=== PATIENT | female | born 1955 | race Caucasian/White ===

== ENCOUNTER → 2020-09-23 16:23 | Outpatient (CLI) | payer BC, SELFPAY ==
--- NOTE | ~2020-09-23 | MM_ITS ---
EXAMINATION: MM screening [facility] BI w christiano HISTORY: Screening TECHNIQUE: Craniocaudal and mediolateral oblique 3-D tomosynthesis images were obtained and synthetic 2-D images were generated. CAD analysis was submitted and interpreted. COMPARISON: Comparison to multiple prior studies sequentially, with oldest reviewed study dated 01/14. BREAST PARENCHYMAL COMPOSITION: There are scattered areas of fibroglandular density. FINDINGS: There is no evidence of suspicious mass, calcification, or architectural distortion to sugg est malignancy in either breast. There has been no suspicious interval change. IMPRESSION: 1. No mammographic evidence of malignancy. 2. Recommend routine screening mammography in one year. BI-RADS Category 1: Negative Reviewed, dictated and finalized at location A. ATIONAL PROGRAMMING DIRECTOR
== END ==
PROVIDERS: PCP Family Medicine; Visit Provider Nurse Practitioner
DX: Z12.31 Encounter for screening mammogram for malignant neoplasm of breast (principal)
CPT/HCPCS: 77063; 77067

== ENCOUNTER 2021-02-18 12:50 | Outpatient (CLI) | payer BC, SELFPAY ==
--- NOTE | ~2021-02-18 | XR_ITS ---
XR shoulder LT min 2V DATE: 02/18/2021 13:29 INDICATION: Left shoulder pain TECHNIQUE: 4 views COMPARISON: None FINDINGS: Osteopenia. No fracture or dislocation. Normal alignment at the acromioclavicular and gleno humeral joints. No periosteal reaction or bone destruction. No abnormal soft tissue calcification. IMPRESSION: Osteopenia Reviewed, dictated and finalized at location B. IMPRESSION: Osteopenia
--- NOTE | ~2021-02-18 | XR_ITS ---
XR cervical spine 4-5V DATE: 02/18/2021 13:29 INDICATION: Neck pain TECHNIQUE: AP, lateral, swimmer's, open-mouth views COMPARISON: None FINDINGS: C1 and C2 are normally aligned and the odontoid process is intact. No fracture or dislocati on or locked facet or prevertebral soft tissue swelling is detected. There is moderate degenerative disc disease at C5-C6 mildly severe degenerative disc disease at C6-C7 , with posterior as well as anterior spurring at each of these levels. There is mild to moderate uncovertebral joint spurring at C5-6 and C6-7. IMPRESSION: Degenerative disc disease and uncovertebral joint spurring at C5-6 and C6-7 Reviewed, dictated and finalized at location B.
== END 2021-02-18 12:51 ==
PROVIDERS: PCP Family Medicine; Visit Provider Physician Assistant
DX: M85.822 Other specified disorders of bone density and structure, left upper arm (principal); M47.812 Spondylosis without myelopathy or radiculopathy, cervical region
CPT/HCPCS: 72050; 73030

== ENCOUNTER 2021-10-07 09:16 | Outpatient (CLI) | payer MEDICARE, SELFPAY ==
--- NOTE | ~2021-10-07 | XR_ITS ---
EXAMINATION: XR chest 2V DATE: 10/07/2021 09:38 INDICATION: Shortness of breath TECHNIQUE: PA and lateral views of the chest were obtained. COMPARISON: Chest radiograph dated 08/18/2018 FINDINGS: The lungs remain clear with no focal airspace opacities, pulmonary edema, pleural effusion or pneumot horax. The cardiomediastinal silhouette is normal. Visualized bones and soft tissues are unremarkable . IMPRESSION: 1. No acute cardiopulmonary disease. Reviewed, dictated and finalized at location B. APPRAISER
== END 2021-10-07 09:17 ==
PROVIDERS: PCP Family Medicine; Visit Provider Physician Assistant
DX: R06.02 Shortness of breath (principal)
CPT/HCPCS: 71046

== ENCOUNTER → 2021-10-13 02:26 | Outpatient (CLI) | payer MEDICARE, SELFPAY ==
[2021-10-13 14:58] LABS: Influenza A QL RT-PCR Negative (Negative); Influenza B QL RT-PCR Negative (Negative)
[2021-10-13 21:18] LABS: SARS-CoV-2 RNA PCR Negative
== END ==
PROVIDERS: PCP Family Medicine; Visit Provider Physician Assistant
DX: R50.9 Fever, unspecified (principal); Z20.822 Contact with and (suspected) exposure to COVID-19
CPT/HCPCS: 87502; C9803; U0003; U0005

== ENCOUNTER → 2021-11-30 12:36 | Outpatient (CLI) | payer MEDICARE, SELFPAY ==
--- NOTE | ~2021-11-30 | MM_ITS ---
EXAMINATION: MM screening [facility] BI w christiano HISTORY: Screening mammogram TECHNIQUE: Craniocaudal and mediolateral oblique 3-D tomosynthesis images were obtained and synthetic 2-D images were generated. CAD analysis was submitted and interpreted. COMPARISON: 09/23/2020, 02/20/2019, 02/01/2018 BREAST PARENCHYMAL COMPOSITION: There are scattered areas of fibroglandular density. FINDINGS: There is no evidence of suspicious mass, calcification, or architectural distortion to sugg est malignancy in either breast. There has been no suspicious interval change. IMPRESSION: 1. No mammographic evidence of malignancy. 2. Recommend routine screening mammography in one year. BI-RADS Category 1: Negative Reviewed, dictated and finalized at location A. ORDER SORTER
== END ==
PROVIDERS: Visit Provider Physician Assistant
DX: Z12.31 Encounter for screening mammogram for malignant neoplasm of breast (principal)
CPT/HCPCS: 77063; 77067

== ENCOUNTER → 2022-03-15 12:51 | Outpatient (CLI) | payer MEDICARE, SELFPAY ==
--- NOTE | ~2022-03-15 | US_ITS ---
EXAMINATION: US transvaginal DATE: 03/15/2022 13:33 INDICATION: Post menopausal bleeding TECHNIQUE: Multiple transabdominal and endovaginal sonographic images of the pelvis were obtained. COMPARISON: 01/16/2016. FINDINGS: Uterus: 6.2 x 3.1 x 3.5 cm. Endometrial complex measures 0.6 cm. Hypoechoic somewhat collection withi n the cervix measuring 1.3 x 1.1 x 1.9 cm Right Ovary: Not visualized. Left Ovary: 2.0 x 1.2 x 1.5 cm. Vascular flow is present. There is no free fluid in the pelvis. IMPRESSION: 1. Small endocervical fluid/clot collection. 2. Nonvisualization of the right ovary. Reviewed, dictated and finalized at location K.
== END ==
PROVIDERS: PCP Family Medicine; Visit Provider Nurse Practitioner
DX: N95.0 Postmenopausal bleeding (principal)
CPT/HCPCS: 76830

== ENCOUNTER 2022-05-11 10:30 | Outpatient (CLI) | payer MEDICARE, SELFPAY ==
[2022-05-11 16:50] LABS: Lithium 0.4 mmol/L (0.6-1.2)
== END 2022-05-11 10:31 | disposition home or self-care (01) ==
PROVIDERS: Anesthesiology; PCP Family Medicine; Visit Provider Obstetrics & Gynecology Gynecology
DX: F31.32 Bipolar disorder, current episode depressed, moderate (principal)
CPT/HCPCS: 36415; 80178

== ENCOUNTER 2022-05-11 10:45 | Outpatient (CLI) | payer MEDICARE, SELFPAY ==
--- NOTE | 2022-05-11 10:46 | ECG_ITS ---
Measurements Intervals [place] Rate: 61 P: 8 SD: 179 QRS: -21 QRSD: 90 T: 22 QT: 420 QTc: 426 Interpretive Statements SINUS RHYTHM POSSIBLE OLD INFERIOR MYOCARDIAL INFARCTION OLD ANTEROSEPTAL MYOCARDIAL INFARCTION NO PREVIOUS ECG AVAILABLE FOR COMPARISON Electronically Signed On 05-11-2022 18:19:31 CDT by Dulce Miguel M.D.
== END 2022-05-11 10:46 | disposition home or self-care (01) ==
LOC: ANHLAB 10:46
PROVIDERS: PCP Family Medicine; Visit Provider Family Medicine
DX: I10 Essential (primary) hypertension (principal)
CPT/HCPCS: 36415; 80178; 93005

== ENCOUNTER 2022-07-18 01:09 | Day surgery (SDC) | payer MEDICARE, SELFPAY ==
[2022-07-15 16:09] VITALS: BMI 33.0
[2022-07-18] VITALS (10 sets, daily range): BP systolic 111–150; BP diastolic 62–82; PULSE 53–64; RESP 12–22; TEMP 36.6; O2SAT 94–99; BMI 34.5
[2022-07-18 07:51] LABS: Basophils Absolute Auto 0.1 K/mm3 (0.0-0.1); Basophils Percent Auto 0.8 % (0.2-1.2); Eosinophils Absolute Auto 0.7 K/mm3 (0-0.3); Eosinophils Percent Auto 7.3 % (0-4.4); Hemoglobin 13.4 g/dL (12.0-15.0); Immature Granulocyte Absolute 0.03 K/mm3 (0.00-0.031); Immature Granulocyte Percent A 0.3 % (0-0.5); Lymphocytes Absolute Auto 2.19 K/mm3 (0.9-3.2); Lymphocytes Percent Auto 22.9 % (18.3-44.2); Mean Corpuscular HGB Conc 32.7 g/dl (32-36); Mean Corpuscular Hemoglobin 29.5 pg (26-34); Mean Corpuscular Volume 90.3 fl (80-100); Mean Platelet Volume 9.7 fl (7.4-10.4); Monocytes Absolute Auto 0.7 K/mm3 (0.1-0.6); Monocytes Percent Auto 6.8 % (2.6-8.5); Neutrophils Absolute Auto 5.9 K/mm3 (1.3-6.7); Neutrophils Percent Auto 61.9 % (45.5-73.1); Platelet Count Result 297 k/mm3 (150-375); Red Blood Count 4.54 M/mm3 (4.2-5.4); Red Cell Distribution Width 13.1 % (11.5-14.5); White Blood Count 9.6 K/mm3 (4.5-10.0)
[2022-07-18 08:01] LABS: Anion Gap 13 mmol/L (8-16); Blood Urea Nitrogen 15 mg/dL (7-17); Calcium 9.5 mg/dL (8.4-10.2); Carbon Dioxide 25 mmol/L (22-30); Chloride 105 mmol/L (98-107); Estimated CRCL calculation 69 ml/min; Estimated Glomerular Filt Rate > 60; Glucose 171 mg/dL (65-110); Potassium 4.2 mmol/L (3.4-5.0); Sodium 143 mmol/L (137-145)
[2022-07-18 08:04] LABS: INR 1.1; Prothrombin Time 13.4 Seconds (11.1-14.7)
--- NOTE | 2022-07-18 08:30 | WPDMODSED ---
Moderate Sedation Note-Pt Data Patient Data Diagnosis: Exertional dyspnea abnormal ECG abnormal nuclear stress test Present Complaint: no complaints this morning Procedure to be performed/Plan: left heart catheterization Allergies Allergy/AdvReac Type Severity Reaction Status Date / Time erythromycin base AdvReac Severe diarrhea Verified 07/18/22 08:27 Home Medications Medication Instructions Recorded Confirmed Type metoprolol tartrate 100 mg tablet 100 mg PO Q12H #180 tabs 12/28/21 07/18/22 Rx albuterol sulfate 90 mcg/actuation 1 inh inhalation Q4H PRN shortness 04/01/22 07/15/22 Rx aerosol inhaler (ProAir HFA) of breath or wheezing #8.5 grams levothyroxine 75 mcg tablet 75 mcg PO DAILY #90 tabs 04/14/22 07/18/22 Rx naproxen 500 mg tablet 500 mg PO BID PRN pain #60 tabs 04/14/22 07/15/22 Rx amlodipine 5 mg tablet 5 mg PO DAILY 05/10/22 07/15/22 History esomeprazole magnesium 20 mg 20 mg PO DAILY 05/10/22 07/18/22 History capsule,delayed release (Nexium) lithium carbonate 300 mg 300 mg PO HS 05/10/22 07/15/22 History tablet,extended release cyanocobalamin (vitamin B-12) 1,000 mg PO DAILY 07/15/22 07/15/22 History duloxetine 30 mg capsule,delayed 30 mg PO DAILY 07/15/22 07/15/22 History release ergocalciferol (vitamin D2) 1,000 mg PO DAILY 07/15/22 07/15/22 History Current Medications: Active Medications Sodium Chloride (Normal Saline Iv) 500 mls @ 100 mls/hr IV CONT .Q5H MARILEE Sedation/Anesthesia: No previous sedation/anesthesia problems (including family history). [facility] Past Medical History Medical History Allergic rhinitis Bipolar affective disorder, currently depressed, moderate Elevated glucose Essential hypertension History of kidney stones Hypersomnolence Hypothyroidism Mixed hyperlipidemia Vitamin D deficiency Family History Family History Grandparent Hypertension Family history of malignant neoplasm Family history of coronary artery disease Father Esophageal cancer Mother Lung cancer Social History Social History Smoking status: Never smoker Second hand tobacco smoke exposure: Yes Alcohol intake: never Substance use: never Substance use type: does not use Living arrangements: with family Gender identity (if verbalized by the patient): Female Sexual Orientation (if Verbalized by the Patient): Straight or Heterosexual Spiritual care concerns: No Agree to blood products: Yes Mod Sed Physical Exam Physical Exam Pre Procedural Exam: Normal: Neck, Throat, Airway, Lungs, Heart Size, Heart Rate, Heart Rhythm, Neuro Exam and Extremities and Variation: Appearance ( overweight lady no apparent distress) Hours since solid foods: 12 Hours since liquid intake: 12 Mallampati Classification: class II Internal Medicine - PN: Obj Da Vital Signs Vital Signs: Vital Signs - 24 hr 07/18/22 07:47 Temperature 36.6 C Pulse Rate 62 Respiratory Rate 17 Blood Pressure 134/73 Pulse Oximetry 97 Oxygen Delivery Room Air Meds/Results Medications: Active Medications Generic Name Dose Route Start Last Admin Trade Name Darinq PRN Reason Stop Dose Admin Sodium Chloride 500 mls @ 100 mls/hr 07/18/22 07:00 Normal Saline Iv IV CONT .Q5H MARILEE Labs CBC & Chem 7: 07/18/22 07:37 07/18/22 07:37 Labs: Laboratory Results - last 24 hr 07/18/22 07/18/22 07/18/22 07:37 07:37 07:37 WBC 9.6 RBC 4.54 Hgb 13.4 Hct 41.0 MCV 90.3 MCH 29.5 MCHC 32.7 RDW 13.1 Plt Count 297 MPV 9.7 Immature Gran % (Auto) 0.3 Neut % (Auto) 61.9 Lymph % (Auto) 22.9 Delta % (Auto) 6.8 Eos % (Auto) 7.3 H Baso % (Auto) 0.8 Lymph # (Auto) 2.19 Delta # (Auto) 0.7 H Eos # (Auto) 0.7 H Ba
--- NOTE | 2022-07-18 09:07 | WPDCARDPROC ---
Cardiac Cath Procedure Note Date of procedure:: 07/18/22 Performing physician:: Alphonse Haider MD Indication:: abnormal electrocardiogram abnormal nuclear stress test Brief clinical history:: this is a 66-year-old woman who has been evaluated for noncardiac surgery. Her electrocardiogram suggests there might have been a previous anterior infarction. She has no clinical history of this. Nuclear stress testing interestingly demonstrates vigorous left ventricular systolic function but apparently a fixed anterior defect. Procedure Procedure performed:: Left heart catheterization Sedation/Medication given:: fentanyl 50 mg Versed 2 mg case start time 8:40 a.m. case end time 8:55 a.m. sedation provided by Karen Sanchez RN trained observer Access site:: right femoral artery Estimated blood loss:: 20 cc Procedure note:: patient was brought to the cardiac catheterization lab in the postabsorptive state where the right femoral triangle was prepared and draped in the normal fashion. Anesthesia was provided with 1% lidocaine infiltrated locally. Using the modified Seldinger technique a 5 Prydeinig sheath was placed into the right common femoral artery after this catheterization was carried out. A 5 Prydeinig angled pigtail catheter was used to measure left-sided hemodynamics and perform a left ventriculogram in the TERRELL projection. Following this the left coronary artery was engaged and injected using a 5 Prydeinig FL4 catheter. The right coronary artery was engaged and injected using a 5 Prydeinig JR4 catheter. The procedure was then terminated an angiogram was done of the femoral artery through the sheath after which a 6 Prydeinig Angio-Seal device was deployed with a good hemostatic result. There were no procedural complications and she left the seed analysis laboratory assistant with no evidence of groin hematoma. Findings:: Hemodynamics: Central aortic pressure is 134 over 64 left ventricle 134/5 end-diastolic pressure 15 there is no gradient across the aortic valve upon pullback. Left ventricle: The left ventricle is normal in size all segments contract vigorously the ejection fraction is hyperdynamic visually estimated to be at 80% the left main coronary artery is widely patent the left anterior descending is a moderate caliber artery extending down to around the apex the LAD and its branches are angiographically free of disease the circumflex is a moderate caliber artery giving rise to the marginal branches and a posterior branch. The circumflex is angiographically free of disease the right coronary artery is moderate caliber and dominant to the posterior circulation the right coronary artery is angiographically free of disease Conclusion:: 1. right coronary dominant circulation with no angiographic abnormalities 2. normal left ventricular size with vigorous systolic function, 3. patient has not had a previous anterior infarction and her stress test is obviously false positive Alphonse Haider MD [facility]
--- NOTE | 2022-07-18 12:01 | SUR.PHASEII ---
Discharge teaching completed. IV removed, pt changed into clothing. Pt assisted to front lobby via wheelchair with all belongings. awaiting in vehicle.
== END 2022-07-18 12:01 | disposition home or self-care (01) ==
LOC: ANHCATHLAB 01:12 → ANHCARD 10:05 → ANHCATHLAB 07-21 09:18
PROVIDERS: PCP Family Medicine; Visit Provider Specialist
PROC: 4A023N7 Measurement of Cardiac Sampling and Pressure, Left Heart, Percutaneous Approach (ICD-10-PCS; CPT 93452; principal; 2022-07-18 08:30)
DX: R94.31 Abnormal electrocardiogram [ECG] [EKG] (principal); R94.39 Abnormal result of other cardiovascular function study; R06.02 Shortness of breath; I10 Essential (primary) hypertension; E03.9 Hypothyroidism, unspecified; F31.9 Bipolar disorder, unspecified; E55.9 Vitamin D deficiency, unspecified; Z79.51 Long term (current) use of inhaled steroids
CPT/HCPCS: 36415; 80048; 85025; 85610; 93458; C1760; C1887; C1894; G0269; J1644; J2250; J3010

== ENCOUNTER 2022-08-24 10:22 | Outpatient (CLI) | payer MEDICARE, SELFPAY ==
[2022-08-24 11:29] LABS: Lithium 0.4 mmol/L (0.6-1.2)
== END 2022-08-24 10:23 | disposition home or self-care (01) ==
LOC: ANHSURGERY 10:28
PROVIDERS: Anesthesiology; PCP Family Medicine; Visit Provider Obstetrics & Gynecology Gynecology
DX: Z51.81 Encounter for therapeutic drug level monitoring (principal); Z79.899 Other long term (current) drug therapy
CPT/HCPCS: 36415; 80178

== ENCOUNTER 2022-08-29 00:37 | Day surgery (SDC) | payer MEDICARE, SELFPAY ==
[2022-08-19 14:11] VITALS: BMI 31.4
--- NOTE | 2022-08-19 14:19 | PC.NURSE ---
PRE-OP INSTRUCTIONS, PLEASE READ CAREFULLY Report to the Outpatient Waiting Room, entrance under the green pavilion located off [facility], at time _12:30 PM_ on date _08/29/22_. Planned Procedure Time: _2:30 PM_. Time changes happen often and if your time is changed the preop area will call you the afternoon before. - You and your visitor will be asked to self-screen and do not enter if you have any COVID symptoms. - Only one visitor is requested with a max of two and NO children visitors are allowed at this time. - The patient visitor may be requested to leave or wait in car when not with patient due to distancing restrictions. - A mask is optional within the hospital. Patients may have clear liquids (water, carbonated beverages, clear teas, apple juice) until 3 hours prior to surgery (1130 AM) with a maximum of 20 ounces. - No food from midnight until time of surgery Take the following medications with a SIP of water the morning of surgery: _LEVOTHYROXINE, METOPROLOL, ALBUTEROL INHALER IF NEEDED_ Medications to discontinue _NAPROXEN PER DR. BACA'S INSTRUCTIONS_ Please no make-up, nail thai, hairspray, perfume, deodorant, or body powder the day of surgery. No jewelry (including any body piercings) or valuables the day of surgery, leave them at home. Please take a shower or bath the night before, or the morning of, surgery with an antibacterial soap. Wear comfortable, loose fitting clothing. - Jewelry must be removed prior to entering the operating room. Rings and piercings that are not removed may be cut off. - The hospital will not accept responsibility for valuables. - Please leave all valuables, including medications, at home the day of surgery. If you are going home after surgery, a licensed bus van driver must drive you home. - NO public transportation without another adult if you receive anesthesia. - We recommend that an adult stay with you for 24 hours following discharge. - We also recommend that you do not drive, make important decision, drink alcoholic beverages, or take any drugs that were not prescribed by your health care provider for at least 24 hours after your discharge time. Follow any additional instructions given to you from your surgeon. If you or anyone in your household have experienced Covid symptoms in the past week, please notify your surgeon or the nurse liaison at the phone number below for possible testing. Telephone instructions given to and asked if any additional questions and then verbalized understanding. Patient advised to call surgeon office or pre surgery nurse liaison [phone] if any additional questions.
[2022-08-29] VITALS (8 sets, daily range): BP systolic 120–156; BP diastolic 70–84; PULSE 53–68; RESP 10–16; TEMP 36.2–36.3; O2SAT 100
--- NOTE | 2022-08-29 08:14 | WPDHPUPDATE1 ---
History and Physical Update Update Date/Time: 08/29/22 08:14 History and Physical has been reviewed, including an updated exam of the patient. There are NO changes in the patient's condition. Risks, benefits, and alternatives have been discussed and questions answered. Patient agrees to proceed with procedure.
--- NOTE | 2022-08-29 08:14 | PM.HPGS ---
History of Present Illness History of Present Illness Consent: Risks, benefits, and alternatives have been discussed and questions answered. Patient agrees to proceed with procedure. Chief complaint: Post Menopausal Bleeding Narrative: Sabine Peña is a 66 year old female with postmenopausal bleeding and thickened endometrium. The recommendation was to proceed with D&C hysteroscopy. Risks of infection, bleeding, perforation, and fluid imbalance were reviewed. Possible pathology was also discussed. Patient voices understanding and agrees to proceed. Review of Systems Review of Systems: not repeated day of surgery; patient states no changes in status [facility] Past Medical History Medical History (Updated 08/29/22 @ 08:22 by Micki Hagan MD) Allergic rhinitis Bipolar affective disorder, currently depressed, moderate Diabetes mellitus Elevated glucose Essential hypertension Fibromyalgia GERD (gastroesophageal reflux disease) History of kidney stones Hypersomnolence Hypothyroidism Migraines Mixed hyperlipidemia (normal spontaneous vaginal delivery) Vitamin D deficiency Surgical History Surgical History (Updated 08/29/22 @ 08:19 by Micki Hagan MD) History of tonsillectomy S/P D&C (status post dilation and curettage) 1980 for miscarriage Family History Family History Grandparent Hypertension Family history of malignant neoplasm Family history of coronary artery disease Father Esophageal cancer Mother Lung cancer Social History Social History (Updated 08/11/22 @ 09:[address] [facility]) Smoking status: Never smoker Second hand tobacco smoke exposure: No Alcohol intake: never Substance use: never Substance use type: does not use Lack of Transportation: No Lack of Food: Never True Current Housing: I Have Housing Concerned About Future Housing: No Difficulty Paying Gas/Electric Bills: YES Difficulty Paying for Meds: No Currently Unemployed: YES Education: High School Diploma/GED Difficulty w/ Childcare or Family Care: No Living arrangements: with family Gender identity (if verbalized by the patient): Female Sexual Orientation (if Verbalized by the Patient): Straight or Heterosexual Spiritual care concerns: No Agree to blood products: Yes Meds Home Medications and Allergies Home Medications Medication Instructions Recorded Confirmed Type metoprolol tartrate 100 mg tablet 100 mg PO Q12H #180 tabs 12/28/21 08/19/22 Rx albuterol sulfate 90 mcg/actuation 1 inh inhalation Q4H PRN shortness 04/01/22 08/19/22 Rx aerosol inhaler (ProAir HFA) of breath or wheezing #8.5 grams levothyroxine 75 mcg tablet 75 mcg PO DAILY #90 tabs 04/14/22 08/19/22 Rx amlodipine 5 mg tablet 5 mg PO DAILY 05/10/22 08/19/22 History esomeprazole magnesium 20 mg 20 mg PO DAILY 05/10/22 08/19/22 History capsule,delayed release (Nexium) lithium carbonate 300 mg 300 mg PO HS 05/10/22 08/19/22 History tablet,extended release cyanocobalamin (vitamin B-12) 1,000 mg PO DAILY 07/15/22 08/19/22 History ergocalciferol (vitamin D2) 1,000 mg PO DAILY 07/15/22 08/19/22 History naproxen 500 mg tablet 500 mg PO BID PRN pain #180 tabs 07/28/22 08/19/22 Rx codeine 10 mg-guaifenesin 100 mg/5 10 ml PO Q4-6H PRN cough #120 mL 07/29/22 08/19/22 Rx mL oral liquid metformin 500 mg tablet 500 mg PO BID #180 tabs 07/29/22 08/19/22 Rx duloxetine 30 mg capsule,delayed 90 mg PO DAILY 90 days #270 caps 08/03/22 08/19/22 Rx release blood sugar diagnostic (Blood #50 ea 08/11/22 08/19/22 Rx Glucose Test strips) blood-glucose meter #1 ea 08/11/22 08/19/22 Rx lancing device (lancing device #1 ea 08/11/22 08/19/22 Rx with lancets) Allergies Allergy/AdvReac Type Severity Reaction Status Date / Time erythromycin base AdvReac Severe diarrhea Verified 08/19/22 14:11 Exam
[2022-08-29] MEDS: ACETAMINOPHEN 500 MG TABLET 1000 MG PO (10:33)
[2022-08-29] MEDS: LACTATED RINGERS 1,000 ML 30 ML IV CONT (10:33)
[2022-08-29 10:41] LABS: Glucose Point of Care 145 mg/dl (65-105)
--- NOTE | 2022-08-29 10:45 | WPDANESEPPF ---
Anes - Initial Pre Proc Eval Procedure: Operation Date: 08/29/22 13:45 Proposed Procedures p Hysteroscopy Dilation and Curettage - Micki Hagan MD Date/Time: 08/29/22 10:45 Surgeon: Micki Hagan MD Pre Op Diagnosis: Post Menopausal Bleeding Patient Data Age: 66 Gender: F Height: 1.68 m Weight: 85.3 kg Last Vital Signs Temp 36.2 C L 08/29/22 10:16 Pulse 68 08/29/22 10:16 Resp 16 08/29/22 10:16 BP 156/84 H 08/29/22 10:16 Pulse Ox 100 08/29/22 10:16 O2 Del Method Room Air 08/29/22 10:16 Allergies Allergy/AdvReac Type Severity Reaction Status Date / Time erythromycin base AdvReac Severe diarrhea Verified 08/29/22 10:11 Home Medications Medication Instructions Recorded Confirmed Type metoprolol tartrate 100 mg tablet 100 mg PO Q12H #180 tabs 12/28/21 08/29/22 Rx albuterol sulfate 90 mcg/actuation 1 inh inhalation Q4H PRN shortness 04/01/22 08/29/22 Rx aerosol inhaler (ProAir HFA) of breath or wheezing #8.5 grams levothyroxine 75 mcg tablet 75 mcg PO DAILY #90 tabs 04/14/22 08/29/22 Rx amlodipine 5 mg tablet 5 mg PO DAILY 05/10/22 08/29/22 History esomeprazole magnesium 20 mg 20 mg PO DAILY 05/10/22 08/29/22 History capsule,delayed release (Nexium) lithium carbonate 300 mg 300 mg PO HS 05/10/22 08/29/22 History tablet,extended release cyanocobalamin (vitamin B-12) 1,000 mg PO DAILY 07/15/22 08/29/22 History ergocalciferol (vitamin D2) 1,000 mg PO DAILY 07/15/22 08/29/22 History naproxen 500 mg tablet 500 mg PO BID PRN pain #180 tabs 07/28/22 08/29/22 Rx codeine 10 mg-guaifenesin 100 mg/5 10 ml PO Q4-6H PRN cough #120 mL 07/29/22 08/29/22 Rx mL oral liquid metformin 500 mg tablet 500 mg PO BID #180 tabs 07/29/22 08/29/22 Rx duloxetine 30 mg capsule,delayed 90 mg PO DAILY 90 days #270 caps 08/03/22 08/29/22 Rx release blood sugar diagnostic (Blood #50 ea 08/11/22 08/29/22 Rx Glucose Test strips) blood-glucose meter #1 ea 08/11/22 08/29/22 Rx lancing device (lancing device #1 ea 08/11/22 08/29/22 Rx with lancets) Laboratory Tests 08/29/22 10:39 POC Capillary Glucose 145 mg/dl H mg/dl (65-105) Patient hx anesthesia problems: none Family hx anesthesia problems: none Results Review: All pre-operative results and documents have been reviewed as part of the pre-operative evaluation. [facility] Past Medical History Medical History Allergic rhinitis Bipolar affective disorder, currently depressed, moderate Diabetes mellitus Elevated glucose Essential hypertension Fibromyalgia GERD (gastroesophageal reflux disease) History of kidney stones Hypersomnolence Hypothyroidism Migraines Mixed hyperlipidemia (normal spontaneous vaginal delivery) Vitamin D deficiency Surgical History Surgical History History of tonsillectomy S/P D&C (status post dilation and curettage) 1980 for miscarriage Family History Family History Grandparent Hypertension Family history of malignant neoplasm Family history of coronary artery disease Father Esophageal cancer Mother Lung cancer Social History Social History Smoking status: Never smoker Second hand tobacco smoke exposure: No Alcohol intake: never Substance use: never Substance use type: does not use Lack of Transportation: No Lack of Food: Never True Current Housing: I Have Housing Concerned About Future Housing: No Difficulty Paying Gas/Electric Bills: YES Difficulty Paying for Meds: No Currently Unemployed: YES Education: High School Diploma/GED Difficulty w/ Childcare or Family Care: No Living arrangements: with family Gender identity (if verbalized by the patient): Female Sexual Orien
[2022-08-29] MEDS: LIDOCAINE HCL 1% PF 30 ML VIAL 10 ML INFILTRATE (12:39)
--- NOTE | 2022-08-29 12:50 | P.OP_ITS ---
Procedure Note - Detailed Date of Procedure 08/29/22 Pre-op Diagnosis Post Menopausal Bleeding; Cervical stenosis Post-op Diagnosis Same Procedure Performed D&C hysteroscopy Surgeon Micki Hagan MD Anesthesia MAC and Local Findings external os has no cervical opening; uterus sounds to 8cm; grossly atrophic Description of Procedure The patient is taken to the operating room and placed under anesthesia in the dorsal lithotomy position. She was prepped and draped in usual sterile fashion. [place] speculum was placed in the vagina and the cervix grasped on the anterior lip with a tenaculum. The cervix is injected in each quadrant with 1% lidocaine. There is no visible cervical opening. The os Finders are used and the small dilator used and no external os was able to be identified. There is visibly a small area that appears to be the cervical dimple. An 11 blade scalpel is used to bert-cross over the left cervical dimple and copious amounts of mucus are expelled. The os Finders were then used and the cervix dilated to a 6 Hegar. The hysteroscope was placed and the endometrium appears very atrophic. the hysteroscope was removed and then small sharp curette used to curette the endometrium until a good uterine cry was noted in all areas. Minimal materials obtained consistent with the visual appearance. All instruments are removed. Sponge, needle, and instrument counts are correct per the OR staff. Patient is awakened from anesthesia and taken to recovery in stable condition. Estimated Blood Loss 5 Drains No Packing No Pathology Yes ( Endometrial curettings) Complications No immediate complications Condition Stable Disposition PACU
[2022-08-29 13:07] LABS: Glucose Point of Care 108 mg/dl (65-105)
== END 2022-08-29 14:28 | disposition home or self-care (01) ==
PROVIDERS: PCP Family Medicine; Visit Provider Obstetrics & Gynecology Gynecology
PROC: 0U5B8ZZ Destruction of Endometrium, Via Natural or Artificial Opening Endoscopic (ICD-10-PCS; CPT 58563; principal; 2022-08-29 13:45)
DX: N95.0 Postmenopausal bleeding (principal); N88.2 Stricture and stenosis of cervix uteri; I10 Essential (primary) hypertension; E03.9 Hypothyroidism, unspecified; E11.9 Type 2 diabetes mellitus without complications; F31.9 Bipolar disorder, unspecified; K21.9 Gastro-esophageal reflux disease without esophagitis; E78.2 Mixed hyperlipidemia; E55.9 Vitamin D deficiency, unspecified; Z79.51 Long term (current) use of inhaled steroids; Z79.84 Long term (current) use of oral hypoglycemic drugs; E66.9 Obesity, unspecified; Z68.30 Body mass index [BMI] 30.0-30.9, adult
CPT/HCPCS: 58558; 82948; 88305; A9270; J2250; J2405; J2704; J3010; J7030; J7120

== ENCOUNTER 2022-10-26 14:30 | Outpatient (RCR) | payer MEDICARE, SELFPAY ==
[2022-10-11 11:13] VITALS: BMI 31.6
[2022-10-11 13:53] VITALS: BMI 31.6
== END 2022-11-20 23:59 | disposition home or self-care (01) ==
LOC: ANHDMC 14:30
PROVIDERS: PCP Family Medicine; Visit Provider Family Medicine
DX: E11.9 Type 2 diabetes mellitus without complications (principal); Z71.89 Other specified counseling; Z71.3 Dietary counseling and surveillance
CPT/HCPCS: 97802; 99199; G0108; G0109

== ENCOUNTER → 2023-02-08 13:46 | Outpatient (CLI) | payer MEDICARE, SELFPAY ==
--- NOTE | ~2023-02-08 | DEXA_ITS ---
Bone Density Report Name: JAYDA RUIZ Age: 67 Sex: Female Ethnicity: White Date of : 1955 Indication: postmenopausal; screening for osteoporosis; height loss; Referring Provider: Silvino, Ne Study: Bone densitometry was performed. Exam Date: February 08, 2023 Accession number: [id number] Bone Density: Region BMD T-score Z-score Classification AP Spine (L1-L4) 1.257 1.9 3.8 Normal Femoral Neck (Left) 1.134 2.6 4.1 Normal Total Hip (Left) 1.168 1.9 3.1 Normal Femoral Neck (Right) 1.068 2.0 3.6 Normal Total Hip (Right) 1.167 1.8 3.1 Normal Total Hip Mean 1.168 1.9 3.1 Normal World Health Organization criteria for BMD impression classify patients as: Normal (T-score at or above -1.0), Osteopenia (T-score between -1.0 and -2.5), or Osteoporosis (T-score at or below -2.5). 10-year Fracture Risk: FRAX not reported because: All T-scores for Spine Total, Hip Total, Femoral Neck at or above -1.0 Previous Exams: Region Exam Age BMD T-score BMD Change BMD Change Date g/cm2 vs Baseline vs Previous AP Spine(L1-L4) 02/08/2023 67 1.257 1.9 0.023* 0.036* 02/20/2019 63 1.221 1.6 -0.013 -0.022 01/18/2016 60 1.243 1.8 0.009 -0.014 01/05/2013 57 1.257 1.9 0.023* 0.023* 01/19/2009 53 1.234 1.7 Total Hip(Left) 02/08/2023 67 1.168 1.9 0.042* -0.004 02/20/2019 63 1.172 1.9 0.045* -0.030* 01/18/2016 60 1.201 2.1 0.075* -0.002 01/05/2013 57 1.204 2.1 0.077* 0.077* 01/19/2009 53 1.126 1.5 Total Hip(Right) 02/08/2023 67 1.167 1.8 0.058* 0.005 02/20/2019 63 1.162 1.8 0.053* -0.024 01/18/2016 60 1.187 2.0 0.077* 0.050* 01/05/2013 57 1.137 1.6 0.027* 0.027* 01/19/2009 53 1.109 1.4 *Denotes significance at 95% confidence level, LSC for AP Spine = 0.022 g/cm2, LSC for Total Hip = 0.027 g/cm2 Clinical Information Provided by Patient: Has used the following medications: Vitamin D Patient maximum height was 65 Menopause Age: 52 No regular weight bearing exercise Drinks caffeinated beverages Onset of menses at age 13 Number of children 1 Impression: The patient has normal bone mass. No significant bone loss was observed. Discussion: LOW RI
== END ==
PROVIDERS: PCP Family Medicine; Visit Provider Nurse Practitioner
DX: Z78.0 Asymptomatic menopausal state (principal)
CPT/HCPCS: 77080

== ENCOUNTER → 2023-06-14 13:09 | Outpatient (CLI) | payer MEDICARE, SELFPAY ==
--- NOTE | ~2023-06-14 | MM_ITS ---
EXAMINATION: MM screening paul BI w christiano HISTORY: Screening mammogram TECHNIQUE: Craniocaudal and mediolateral oblique 3-D tomosynthesis images were obtained and synthetic 2-D images were generated. CAD analysis was submitted and interpreted. COMPARISON: 11/30/2021, 09/23/2020, 02/20/2019 bilateral screening mammogram examinations BREAST PARENCHYMAL COMPOSITION: There are scattered areas of fibroglandular density. FINDINGS: There is no evidence of suspicious mass, calcification, or architectural distortion to sugg est malignancy in either breast. There has been no suspicious interval change. IMPRESSION: 1. No mammographic evidence of malignancy. 2. Recommend routine screening mammography in one year. BI-RADS Category 1: Negative Reviewed, dictated and finalized at location A.
== END ==
PROVIDERS: PCP Family Medicine; Visit Provider Nurse Practitioner
DX: Z12.31 Encounter for screening mammogram for malignant neoplasm of breast (principal)
CPT/HCPCS: 77063; 77067

== ENCOUNTER 2024-04-19 13:14 | Outpatient (CLI) | payer MEDICARE, SELFPAY ==
--- NOTE | ~2024-04-19 | XR_ITS ---
XR abdomen/kub 1V Ordering provider: Maverick Bravo MD History: . Hx of kidney stones . Comparison: April 12, 2015 FINDINGS: BOWEL: Fecal material in the colon suggestive of constipation. Nonobstructive bowel gas pattern. ORGANOMEGALY: None. SIGNIFICANT PATHOLOGIC CALCIFICATIONS: Calcification in the right paraspinal area which may be a ston e or in the fecal material. OTHER: Degenerative changes of the spine. No free air is seen under the diaphragm. IMPRESSION: NO ACUTE ABDOMINAL FINDINGS. Constipation. Calcification in the right paraspinal spinal area which may be a stone or in the fecal material. Reviewed, dictated and finalized at location A. IMPRESSION: NO ACUTE ABDOMINAL FINDINGS. Constipation. Calcification in the right paraspinal spinal area which may be a stone or in th e fecal material.
--- NOTE | ~2024-04-19 | CT_ITS ---
EXAMINATION: CT abdomen pelvis wo con DATE: 04/19/2024 13:51 INDICATION: Nephrolithiasis TECHNIQUE: Computed tomography (CT) of the abdomen and pelvis was performed without intravenous contr ast. Automated exposure control and iterative reconstruction technique were employed. The dose-length product was 499.92 mGy-cm. COMPARISON: 04/10/2015 FINDINGS: Lung bases are clear. Heart size is normal. No pericardial or pleural effusion. Small calcified galls tone at the neck of the otherwise normal-appearing gallbladder. Liver, spleen, pancreas and bilateral adrenal glands are normal. Obstructing 12 x 6 x 5 mm stone at the right ureteropelvic junction with moderate right hydronephrosis. No other urolithiasis. The left kidney and bilateral ureters are merly l. Bladder is normal. Uterus and bilateral adnexa are unremarkable. Moderate amount of stool scattere d throughout the colon. Small bowel and appendix are normal. No free intraperitoneal gas or fluid. No pathologically enlarged abdominal or pelvic lymphadenopathy. IMPRESSION: 1. Obstructing 4 x 6 x 5 mm stone at the right ureteropelvic junction with moderate right hydronephro sis. Reviewed, dictated and finalized at location A. IMPRESSION: 1. Obstructing 4 x 6 x 5 mm stone at the right ureteropelvic junction with mode rate right hydronephrosis.
== END 2024-04-19 13:15 ==
LOC: MICIMG 13:16
PROVIDERS: PCP Family Medicine; Visit Provider Urology
DX: K59.00 Constipation, unspecified (principal); N20.1 Calculus of ureter
CPT/HCPCS: 74018; 74176

== ENCOUNTER 2024-05-01 11:26 | Outpatient (CLI) | payer MEDICARE, SELFPAY ==
--- NOTE | 2024-05-01 11:46 | ECG_ITS ---
Test Date: 2024-05-01 12:06:54 Measurements Intervals Arimo Rate: 61 P: 30 NV: 168 QRS: -29 QRSD: 101 T: 26 QT: 419 QTc: 423 Interpretive Statements SINUS RHYTHM INFERIOR INFARCT, AGE INDETERMINATE EXTENSIVE ANTERIOR INFARCT, AGE INDETERMINATE BASELINE ARTIFACT- II, III, AVR, AVL, AVF ABNORMAL ECG No previous ECG available for comparison Electronically Signed On 05-01-2024 12:10:00 CDT by Marco Zhu D.O.
[2024-05-01 12:30] LABS: Prothrombin Time 13.9 Seconds (11.1-14.7)
[2024-05-01 12:31] LABS: Partial Thromboplastin Time 25.8 Seconds (22.3-36.8)
[2024-05-01 12:36] LABS: Anion Gap 14 mmol/L (4-12); Blood Urea Nitrogen 24 mg/dL (7-17); Calcium 9.6 mg/dL (8.4-10.2); Carbon Dioxide 24 mmol/L (22-30); Chloride 98 mmol/L (98-107); Estimated Glomerular Filt Rate > 60; Glucose 114 mg/dL (65-110); Potassium 4.1 mmol/L (3.4-5.0); Sodium 136 mmol/L (137-145)
== END 2024-05-01 11:27 | disposition home or self-care (01) ==
PROVIDERS: Anesthesiology; PCP Family Medicine; Visit Provider Urology
DX: Z01.818 Encounter for other preprocedural examination (principal); N20.0 Calculus of kidney; E11.9 Type 2 diabetes mellitus without complications; I10 Essential (primary) hypertension
CPT/HCPCS: 36415; 80048; 85610; 85730; 87086; 93005

== ENCOUNTER 2024-05-09 02:01 | Day surgery (SDC) | payer MEDICARE, SELFPAY ==
[2024-04-30 13:13] VITALS: BMI 28.2
--- NOTE | 2024-04-30 13:14 | PC.NURSE ---
Addendum entered by Sachin Maria RN 04/30/24 14:36: Also take Metoprolol morning of surgery. Original Note: Report to the Outpatient Waiting Room, entrance under the green pavilion located off [facility], at time _1000_ on date _[id number]_. Planned Procedure Time: _1200_. Time changes happen often and if your time is changed the preop area will call you the afternoon before. - You and your visitor will be asked to self-screen and do not enter if you have any COVID symptoms. - A mask is optional within the hospital at this time. Patients may have clear liquids (water, carbonated beverages, clear teas, apple juice) until 3 hours prior to surgery with a maximum of 20 ounces. - No food from midnight until time of surgery Take the following medications with a SIP of water the morning of surgery: ____Amlodipine and Levothyroxine DO NOT STOP ANY OF YOUR OTHER PRESCRIPTION MEDICATIONS PRIOR TO SURGERY ?EXCEPT THE FOLLOWING Medications to discontinue per physician Vitamin B-12 and Probiotic Date to take last jbeb___[id number] Kqzsffl has stopped Naproxen already in preparation for surgery. Please no make-up, nail wolof, hairspray, perfume, deodorant, or body powder the day of surgery. No jewelry (including any body piercings) or valuables the day of surgery, leave them at home. Please take a shower or bath the night before, or the morning of, surgery with an antibacterial soap. Wear comfortable, loose fitting clothing. - Jewelry must be removed prior to entering the operating room. Rings and piercings that are not removed may be cut off. - The hospital will not accept responsibility for valuables. - Please leave all valuables, including medications, at home the day of surgery. If you are going home after surgery, a licensed dray truck driver must drive you home. - NO public transportation without another adult if you receive anesthesia. - We recommend that an adult stay with you for 24 hours following discharge. - We also recommend that you do not drive, make important decision, drink alcoholic beverages, or take any drugs that were not prescribed by your health care provider for at least 24 hours after your discharge time. Follow any additional instructions given to you from your surgeon. If you or anyone in your household have experienced Covid symptoms in the past week, please notify your surgeon or the nurse liaison at the phone number below for possible testing. Telephone instructions given to __Pat___and asked if any additional questions and then verbalized understanding. Patient advised to call surgeon office or pre surgery nurse liaison [phone] if any additional questions.
--- NOTE | 2024-05-01 07:21 | PM.HPGS ---
History of Present Illness History of Present Illness Consent: Risks, benefits, and alternatives have been discussed and questions answered. Patient agrees to proceed with procedure. Chief complaint: Right Renal Stone Narrative: Sabine Peña is a 68 year old female who was undergoing evaluation for recurrent cystitis by our nurse practitioner Becky Lacey when renal ultrasonography suggested a large stone in her proximal right ureter. This is confirmed by renal CT. After discussion of options she elects for cystoscopy with right ureteral stent placement and right ESWL. Patient is aware of the risks including, but not limited to, adverse cardiopulmonary events, need for additional procedures, hematuria and perinephric hematoma Review of Systems Review of Systems: All systems reviewed & are unremarkable except as noted in HPI and below PMFSH Past Medical History Medical History Allergic rhinitis Bipolar affective disorder, currently depressed, moderate Diabetes mellitus Elevated glucose Essential hypertension Fibromyalgia GERD (gastroesophageal reflux disease) History of kidney stones Hypersomnolence Hypothyroidism Migraines Mixed hyperlipidemia (normal spontaneous vaginal delivery) Vitamin D deficiency Surgical History Surgical History History of tonsillectomy S/P D&C (status post dilation and curettage) 1981 for miscarriage Family History Family History Grandparent Hypertension Family history of malignant neoplasm Family history of coronary artery disease Father Esophageal cancer Mother Lung cancer Social History Social History Smoking status: Never smoker Second hand tobacco smoke exposure: No Alcohol intake: never Substance use: never Substance use type: does not use Lack of Transportation: No Lack of Food: Never True Current Housing: I Have Housing Concerned About Future Housing: No Difficulty Paying Gas/Electric Bills: YES Difficulty Paying for Meds: No Currently Unemployed: YES Education: High School Diploma/GED Difficulty w/ Childcare or Family Care: No Living arrangements: with family Occupation/Education: unemployed Gender identity (if verbalized by the patient): Female Sexual Orientation (if Verbalized by the Patient): Straight or Heterosexual Spiritual care concerns: No Agree to blood products: Yes Meds Home Medications and Allergies Home Medications Medication Instructions Recorded Confirmed Type albuterol sulfate 90 mcg/actuation 1 inh inhalation Q4H PRN shortness 04/01/22 04/30/24 Rx aerosol inhaler (ProAir HFA) of breath or wheezing #8.5 grams esomeprazole magnesium 20 mg 20 mg PO DAILY 05/10/22 04/30/24 History capsule,delayed release (Nexium) cyanocobalamin (vitamin B-12) 1,000 mg PO DAILY 07/15/22 04/30/24 History blood sugar diagnostic (Blood #50 ea 08/11/22 04/30/24 Rx Glucose Test strips) lancing device (lancing device #1 ea 08/11/22 04/30/24 Rx with lancets) blood-glucose meter #1 ea 09/29/22 04/30/24 Rx lancets (OneTouch UltraSoft #100 ea 11/30/22 04/30/24 Rx Lancets) naproxen 500 mg tablet See Rx Instructions .Route 03/07/23 04/30/24 Rx .COMPLEX #180 tabs metformin 500 mg tablet 500 mg PO BID #180 tabs 01/16/24 04/30/24 Rx duloxetine 30 mg capsule,delayed 90 mg PO DAILY 90 days #270 caps 02/27/24 04/30/24 Rx release blood sugar diagnostic (OneTouch #100 ea 03/19/24 04/30/24 Rx Verio test strips) lurasidone 80 mg tablet (Latuda) 80 mg PO DAILY #30 tabs 03/19/24 04/30/24 Rx metoprolol tartrate 100 mg tablet 100 mg PO Q12H #180 tabs 04/05/24 04/30/24 Rx amlodipine 5 mg tablet 5 mg PO DAILY #90 tabs 04/18/24 04/30/24 Rx levothyroxine 75 mcg tablet 75 mc
[2024-05-09] VITALS (7 sets, daily range): BP systolic 126–158; BP diastolic 69–98; PULSE 62–69; RESP 10–20; TEMP 36.2; O2SAT 100
--- NOTE | ~2024-05-09 | XR_ITS ---
EXAMINATION: XR abdomen/kub 1V DATE: 05/09/2024 10:15 INDICATION: Kidney stone. TECHNIQUE: A supine view of the abdomen on 2 radiographs was obtained. COMPARISON: CT abdomen and pelvis 04/19/2024 FINDINGS: There are no dilated loops of bowel. There is a moderate volume of stool in the colon. Ther e is a 6 x 12 mm stone in proximal right ureter at L2. IMPRESSION: 1. 6 x 12 mm stone in proximal right ureter. Reviewed, dictated and finalized at location A.
--- NOTE | 2024-05-09 06:13 | WPDHPUPDATE1 ---
History and Physical Update Update Date/Time: 05/09/24 06:13 History and Physical has been reviewed, including an updated exam of the patient. There are NO changes in the patient's condition. Risks, benefits, and alternatives have been discussed and questions answered. Patient agrees to proceed with procedure.
--- NOTE | 2024-05-09 10:34 | WPDANESEPPF ---
Anes - Initial Pre Proc Eval Procedure: Operation Date: 05/09/24 12:00 Proposed Procedures p Right Extracorporeal Shock Wave Lithotripsy, Cystoscopy, Right Ureteral Stent Placement - Maverick Bravo MD Date/Time: 05/09/24 10:34 Surgeon: Maverick Bravo MD Pre Op Diagnosis: Right Renal Stone Patient Data Age: 68 Gender: F Height: 1.66 m Weight: 78.2 kg Allergies Allergy/AdvReac Type Severity Reaction Status Date / Time erythromycin base AdvReac Severe diarrhea Verified 04/30/24 13:06 Home Medications Medication Instructions Recorded Confirmed Type albuterol sulfate 90 mcg/actuation 1 inh inhalation Q4H PRN shortness 04/01/22 04/30/24 Rx aerosol inhaler (ProAir HFA) of breath or wheezing #8.5 grams esomeprazole magnesium 20 mg 20 mg PO DAILY 05/10/22 04/30/24 History capsule,delayed release (Nexium) cyanocobalamin (vitamin B-12) 1,000 mg PO DAILY 07/15/22 04/30/24 History blood sugar diagnostic (Blood #50 ea 08/11/22 04/30/24 Rx Glucose Test strips) lancing device (lancing device #1 ea 08/11/22 04/30/24 Rx with lancets) blood-glucose meter #1 ea 09/29/22 04/30/24 Rx lancets (OneTouch UltraSoft #100 ea 11/30/22 04/30/24 Rx Lancets) naproxen 500 mg tablet See Rx Instructions .Route 03/07/23 04/30/24 Rx .COMPLEX #180 tabs metformin 500 mg tablet 500 mg PO BID #180 tabs 01/16/24 04/30/24 Rx duloxetine 30 mg capsule,delayed 90 mg PO DAILY 90 days #270 caps 02/27/24 04/30/24 Rx release blood sugar diagnostic (OneTouch #100 ea 03/19/24 04/30/24 Rx Verio test strips) lurasidone 80 mg tablet (Latuda) 80 mg PO DAILY #30 tabs 03/19/24 04/30/24 Rx metoprolol tartrate 100 mg tablet 100 mg PO Q12H #180 tabs 04/05/24 04/30/24 Rx amlodipine 5 mg tablet 5 mg PO DAILY #90 tabs 04/18/24 04/30/24 Rx levothyroxine 75 mcg tablet 75 mcg PO DAILY #90 tabs 04/24/24 04/30/24 Rx Lactobacillus 40-Bifidobact 1 cap PO DAILY 04/30/24 04/30/24 History 3-S.thermophilus 100 billion cell capsule (Probiotic) Patient hx anesthesia problems: none Family hx anesthesia problems: none Results Review: All pre-operative results and documents have been reviewed as part of the pre-operative evaluation. [facility] Past Medical History Medical History Allergic rhinitis Bipolar affective disorder, currently depressed, moderate Diabetes mellitus Elevated glucose Essential hypertension Fibromyalgia GERD (gastroesophageal reflux disease) History of kidney stones Hypersomnolence Hypothyroidism Migraines Mixed hyperlipidemia (normal spontaneous vaginal delivery) Vitamin D deficiency Surgical History Surgical History History of tonsillectomy S/P D&C (status post dilation and curettage) 1981 for miscarriage Family History Family History Grandparent Hypertension Family history of malignant neoplasm Family history of coronary artery disease Father Esophageal cancer Mother Lung cancer Social History Social History Smoking status: Never smoker Second hand tobacco smoke exposure: No Alcohol intake: never Substance use: never Substance use type: does not use Lack of Transportation: No Lack of Food: Never True Current Housing: I Have Housing Concerned About Future Housing: No Difficulty Paying Gas/Electric Bills: YES Difficulty Paying for Meds: No Currently Unemployed: YES Education: High School Diploma/GED Difficulty w/ Childcare or Family Care: No Living arrangements: with family Occupation/Education: unemployed Gender identity (if verbalized by the patient): Female Sexual Orientation (if Verbalized by the Patient): Straight or Heterosexual Spiritual care concerns: No Agree to blood products: Yes Anes
[2024-05-09 10:57] LABS: Glucose Point of Care 115 mg/dl (65-105)
[2024-05-09] MEDS: LACTATED RINGERS 1,000 ML 30 ML IV CONT ×2 (11:00→13:55)
[2024-05-09] MEDS: ceFAZolin 2 GM/D5W 50 ML 2 GM/50 ML BAG IVPB (12:09)
--- NOTE | 2024-05-09 12:48 | P.OP_ITS ---
Procedure Note - Detailed Date of Procedure 05/09/24 Pre-op Diagnosis Right Renal Stone Post-op Diagnosis Same Procedure Performed Cystoscopy, right ureteral stent placement, right ESWL Surgeon Maverick Bravo MD Anesthesia General Description of Procedure The patient was brought to the operative suite where she was placed in the frog- legged position on the Dornier lithotripter table. Flexible cystoscopy was undertaken with a 16F flexible cystoscopy. Her urethra and bladder neck were endoscopically normal. The bladder mucosa was normal and there was a single, orthotopic ureteral orifice bilaterally. A 0.035 glidewire was advanced into the right renal pelvis under fluoroscopy. A 4.8F J-J ureteral stent was positioned with the proximal coil in the renal pelvis and the distal coil in the bladder. The patient was then repositioned in the supine position and the focal point of the lithotriptor was placed at a 6-7mm left mid-ureteral calculus. A total of 2500 shocks were delivered at a power setting of 7. There appeared to be good fragmentation of the stone. The patient tolerated the procedure well and was taken to the recovery room in good condition. Estimated Blood Loss 0 Drains No Packing No Condition Stable Disposition PACU
[2024-05-09 13:36] LABS: Glucose Point of Care 94 mg/dl (65-105)
--- NOTE | 2024-05-09 13:50 | SUR.PHASEI ---
1348: Simple mask removed.
== END 2024-05-09 14:55 | disposition home or self-care (01) ==
PROVIDERS: PCP Family Medicine; Visit Provider Urology
PROC: (CPT 50590; principal; 2024-05-09 12:00)
DX: N20.1 Calculus of ureter (principal); I10 Essential (primary) hypertension; E78.5 Hyperlipidemia, unspecified; E11.9 Type 2 diabetes mellitus without complications; K21.9 Gastro-esophageal reflux disease without esophagitis; E03.9 Hypothyroidism, unspecified; E55.9 Vitamin D deficiency, unspecified; F31.9 Bipolar disorder, unspecified; Z79.51 Long term (current) use of inhaled steroids; Z79.1 Long term (current) use of non-steroidal anti-inflammatories (NSAID); Z79.84 Long term (current) use of oral hypoglycemic drugs; Z98.890 Other specified postprocedural states; Z80.1 Family history of malignant neoplasm of trachea, bronchus and lung; Z80.0 Family history of malignant neoplasm of digestive organs; Z82.49 Family history of ischemic heart disease and other diseases of the circulatory system
CPT/HCPCS: 52332; 50590; 74018; 82948; C1769; C2617; J0690; J1596; J2405; J2704; J3010; J7030; J7120; Q9966

== ENCOUNTER 2024-05-20 15:26 | Outpatient (CLI) | payer MEDICARE, SELFPAY ==
--- NOTE | ~2024-05-20 | XR_ITS ---
EXAMINATION: XR abdomen/kub 1V DATE: 05/20/2024 15:38 INDICATION: Calculus of kidney, right side. TECHNIQUE: A supine view of the abdomen on 2 radiographs was obtained. COMPARISON: Abdomen radiographs 05/09/2024, CT abdomen and pelvis 04/19/2024 FINDINGS: There are no dilated loops of bowel. There is a large volume of stool in the colon. There i s a right internal ureteral stent in expected position. There are multiple densities measuring up to 7 mm near the proximal stent. IMPRESSION: 1. Multiple densities measuring up to 7 mm near the proximal aspect of the right internal ureteral st ent, which may be ureteral stones and/or bowel contents. Reviewed, dictated and finalized at location A. IMPRESSION: 1. Multiple densities measuring up to 7 mm near the proximal aspect of the righ t internal ureteral stent, which may be ureteral stones and/or bowel contents.
== END 2024-05-20 15:27 | disposition home or self-care (01) ==
LOC: ANHIMG 15:28
PROVIDERS: PCP Family Medicine; Visit Provider Urology
DX: N20.0 Calculus of kidney (principal)
CPT/HCPCS: 74018

== ENCOUNTER 2024-05-31 12:36 | Outpatient (CLI) | payer MEDICARE, SELFPAY ==
--- NOTE | ~2024-05-31 | XR_ITS ---
XR abdomen/kub 1V 05/31/2024 12:51 Indication: Right renal stone follow-up Procedure: KUB Comparison: Comparison to multiple prior studies sequentially, with oldest reviewed study dated 05/2024. Findings: Right internal ureteral stent position is stable. There are are multiple stones in the righ t ureter including the right UPJ. Bowel gas pattern nonobstructive. Moderate colonic fecal loading. N o acute osseous abnormality. Impression: 1: Right ureterolithiasis with stable position to the right internal ureteral stent. Reviewed, dictated and finalized at location B. Impression: 1: Right ureterolithiasis with stable position to the right internal ureteral s tent.
== END 2024-05-31 12:37 | disposition home or self-care (01) ==
LOC: ANHIMG 12:39
PROVIDERS: PCP Family Medicine; Visit Provider Urology
DX: N20.1 Calculus of ureter (principal); Z96.0 Presence of urogenital implants
CPT/HCPCS: 74018

== ENCOUNTER 2024-06-13 10:21 | Outpatient (CLI) | payer MEDICARE, SELFPAY ==
[2024-06-13 11:51] LABS: INR 1.1; Partial Thromboplastin Time 26.2 Seconds (22.3-36.8); Prothrombin Time 14.2 Seconds (11.1-14.7)
== END 2024-06-13 10:22 | disposition home or self-care (01) ==
LOC: ANHSURGERY 10:25
PROVIDERS: PCP Family Medicine; Visit Provider Urology
DX: N20.0 Calculus of kidney (principal); Z01.818 Encounter for other preprocedural examination
CPT/HCPCS: 36415; 85610; 85730; 87086

== ENCOUNTER 2024-06-21 03:02 | Day surgery (SDC) | payer MEDICARE, SELFPAY ==
[2024-06-11 14:45] VITALS: BMI 28.1
--- NOTE | 2024-06-11 14:58 | PC.NURSE ---
Report to the Outpatient Waiting Room, entrance under the green pavilion located off [facility], at time __09:30am__on date _06/21/24 . Planned Procedure Time: ____11:30am____.? Time changes happen often and if your time is changed the preop area will call you the afternoon before. - You and your visitor will be asked to self-screen and do not enter if you have any COVID symptoms. Please call surgeon if you need to reschedule. - A mask is optional within the hospital at this time. Patients may have clear liquids (water, carbonated beverages, clear teas, apple juice) until 3 hours prior to surgery with a maximum of 20 ounces. - No food from midnight until time of surgery and no smoking Take only the following medications with a SIP of water on the morning of surgery: ____Levothyroxine and Metoprolol DO NOT STOP ANY OF YOUR OTHER PRESCRIPTION MEDICATIONS PRIOR TO SURGERY EXCEPT THE FOLLOWING Medications to discontinue per physician Hold all vitamins, NSAIDS, supplements for per Dr Bravo. Date to take last dose_Pt has not taken any of these since last surgery on 05/09/24 and will cont to hold. Please no make-up, nail indonesian, hairspray, perfume, deodorant, or body powder the day of surgery.? No jewelry (including any body piercings) or valuables the day of surgery, leave them at home.? Please take a shower or bath the night before, or the morning of, surgery with an antibacterial soap.? Wear comfortable, loose fitting clothing.? - Jewelry must be removed prior to entering the operating room.? Rings and piercings that are not removed may be cut off. - The hospital will not accept responsibility for valuables.? - Please leave all valuables, including medications, at home the day of surgery. If you are going home after surgery, a licensed trackless trolley driver must drive you home.? - NO public transportation without another adult if you receive anesthesia. - We recommend that an adult stay with you for 24 hours following discharge. - We also recommend that you do not drive, make important decision, drink alcoholic beverages, or take any drugs that were not prescribed by your health care provider for at least 24 hours after your discharge time. Follow any additional instructions given to you from your surgeon. Telephone instructions given to __patient and asked if any additional questions and then verbalized understanding. Patient advised to call surgeon office or pre surgery nurse liaison [phone] if any additional questions.
--- NOTE | 2024-06-17 06:50 | PM.HPGS ---
History of Present Illness History of Present Illness Consent: Risks, benefits, and alternatives have been discussed and questions answered. Patient agrees to proceed with procedure. Chief complaint: right renal stone Narrative: Sabine Peña is a 68 year old female who is undergone 1 prior recent right ESWL but has rather small residual fragments. She presents today for repeat right ESWL along with cystoscopy and right ureteral stent removal. She is aware of the risks including, not limited to, ureteral fragments that could be lodged and require additional procedures and hematuria. Review of Systems Review of Systems: All systems reviewed & are unremarkable except as noted in HPI and below PMFSH Past Medical History Medical History Allergic rhinitis Bipolar affective disorder, currently depressed, moderate Diabetes mellitus Elevated glucose Essential hypertension Fibromyalgia GERD (gastroesophageal reflux disease) History of kidney stones Hypersomnolence Hypothyroidism Migraines Mixed hyperlipidemia (normal spontaneous vaginal delivery) Vitamin D deficiency Surgical History Surgical History History of tonsillectomy S/P D&C (status post dilation and curettage) 1981 for miscarriage Family History Family History Grandparent Hypertension Family history of malignant neoplasm Family history of coronary artery disease Father Esophageal cancer Mother Lung cancer Social History Social History Smoking status: Never smoker Second hand tobacco smoke exposure: No Alcohol intake: never Substance use: never Substance use type: does not use Lack of Transportation: No Lack of Food: Never True Current Housing: I Have Housing Concerned About Future Housing: No Difficulty Paying Gas/Electric Bills: YES Difficulty Paying for Meds: No Currently Unemployed: YES Education: High School Diploma/GED Difficulty w/ Childcare or Family Care: No Living arrangements: with family Additional living arrangements comments: Occupation/Education: unemployed Gender identity (if verbalized by the patient): Female Sexual Orientation (if Verbalized by the Patient): Straight or Heterosexual Spiritual care concerns: No Agree to blood products: Yes Meds Home Medications and Allergies Home Medications Medication Instructions Recorded Confirmed Type albuterol sulfate 90 mcg/actuation 1 inh inhalation Q4H PRN shortness 04/01/22 06/11/24 Rx aerosol inhaler (ProAir HFA) of breath or wheezing #8.5 grams esomeprazole magnesium 20 mg 20 mg PO DAILY 05/10/22 06/11/24 History capsule,delayed release (Nexium) cyanocobalamin (vitamin B-12) 1,000 mg PO DAILY 07/15/22 06/11/24 History blood sugar diagnostic (Blood #50 ea 08/11/22 04/30/24 Rx Glucose Test strips) lancing device (lancing device #1 ea 08/11/22 04/30/24 Rx with lancets) blood-glucose meter #1 ea 09/29/22 04/30/24 Rx lancets (OneTouch UltraSoft #100 ea 11/30/22 04/30/24 Rx Lancets) metformin 500 mg tablet 500 mg PO BID #180 tabs 01/16/24 06/11/24 Rx duloxetine 30 mg capsule,delayed 90 mg PO DAILY 90 days #270 caps 02/27/24 06/11/24 Rx release blood sugar diagnostic (OneTouch #100 ea 03/19/24 04/30/24 Rx Verio test strips) lurasidone 80 mg tablet (Latuda) 80 mg PO DAILY #30 tabs 03/19/24 06/11/24 Rx metoprolol tartrate 100 mg tablet 100 mg PO Q12H #180 tabs 04/05/24 06/11/24 Rx amlodipine 5 mg tablet 5 mg PO DAILY #90 tabs 04/18/24 06/11/24 Rx levothyroxine 75 mcg tablet 75 mcg PO DAILY #90 tabs 04/24/24 06/11/24 Rx Lactobacillus 40-Bifidobact 1 cap PO DAILY 04/30/24 06/11/24 History 3-S.thermophilus 100 billion cell capsule (Probiotic) hydrocodone 5 mg-
[2024-06-21] VITALS (8 sets, daily range): BP systolic 115–147; BP diastolic 64–75; PULSE 64–79; RESP 10–18; TEMP 36.2–36.6; O2SAT 98–100
--- NOTE | ~2024-06-21 | XR_ITS ---
EXAMINATION: XR abdomen/kub 1V DATE: 06/21/2024 09:57 INDICATION: Kidney stone. TECHNIQUE: A supine view of the abdomen on 2 radiographs was obtained. COMPARISON: Abdomen radiographs 05/31/2024, CT abdomen and pelvis 04/19/2024 FINDINGS: There are no dilated loops of bowel. There is a right internal ureteral stent in expected p osition. There are 7 mm and 3 mm stones in right kidney. IMPRESSION: 1. Right kidney stones. Right internal ureteral stent in expected position. Reviewed, dictated and finalized at location A.
--- NOTE | 2024-06-21 07:36 | WPDHPUPDATE1 ---
History and Physical Update Update Date/Time: 06/21/24 07:36 History and Physical has been reviewed, including an updated exam of the patient. There are NO changes in the patient's condition. Risks, benefits, and alternatives have been discussed and questions answered. Patient agrees to proceed with procedure.
[2024-06-21] MEDS: LACTATED RINGERS 1,000 ML 30 ML IV CONT (10:30)
--- NOTE | 2024-06-21 10:36 | WPDANESEPPF ---
Anes - Initial Pre Proc Eval Procedure: Operation Date: 06/21/24 11:30 Proposed Procedures p Right Extracorporeal Shock Wave Lithotripsy - Maverick Bravo MD s Cystoscopy with Right Stent Removal - Maverick Bravo MD Date/Time: 06/21/24 10:36 Surgeon: Maverick Bravo MD Pre Op Diagnosis: right renal stone Patient Data Age: 68 Gender: F Height: 1.66 m Weight: 78 kg Allergies Allergy/AdvReac Type Severity Reaction Status Date / Time erythromycin base AdvReac Severe diarrhea Verified 06/11/24 14:38 Home Medications Medication Instructions Recorded Confirmed Type albuterol sulfate 90 mcg/actuation 1 inh inhalation Q4H PRN shortness 04/01/22 06/11/24 Rx aerosol inhaler (ProAir HFA) of breath or wheezing #8.5 grams esomeprazole magnesium 20 mg 20 mg PO DAILY 05/10/22 06/11/24 History capsule,delayed release (Nexium) cyanocobalamin (vitamin B-12) 1,000 mg PO DAILY 07/15/22 06/11/24 History blood sugar diagnostic (Blood #50 ea 08/11/22 04/30/24 Rx Glucose Test strips) lancing device (lancing device #1 ea 08/11/22 04/30/24 Rx with lancets) blood-glucose meter #1 ea 09/29/22 04/30/24 Rx lancets (OneTouch UltraSoft #100 ea 11/30/22 04/30/24 Rx Lancets) metformin 500 mg tablet 500 mg PO BID #180 tabs 01/16/24 06/11/24 Rx duloxetine 30 mg capsule,delayed 90 mg PO DAILY 90 days #270 caps 02/27/24 06/11/24 Rx release blood sugar diagnostic (OneTouch #100 ea 03/19/24 04/30/24 Rx Verio test strips) lurasidone 80 mg tablet (Latuda) 80 mg PO DAILY #30 tabs 03/19/24 06/11/24 Rx metoprolol tartrate 100 mg tablet 100 mg PO Q12H #180 tabs 04/05/24 06/11/24 Rx amlodipine 5 mg tablet 5 mg PO DAILY #90 tabs 04/18/24 06/11/24 Rx levothyroxine 75 mcg tablet 75 mcg PO DAILY #90 tabs 04/24/24 06/11/24 Rx Lactobacillus 40-Bifidobact 1 cap PO DAILY 04/30/24 06/11/24 History 3-S.thermophilus 100 billion cell capsule (Probiotic) hydrocodone 5 mg-acetaminophen 325 1 - 2 tablet PO Q6H PRN pain #20 05/09/24 06/11/24 Rx mg tablet tabs Patient hx anesthesia problems: none Family hx anesthesia problems: none Results Review: All pre-operative results and documents have been reviewed as part of the pre-operative evaluation. [facility] Past Medical History Medical History Allergic rhinitis Bipolar affective disorder, currently depressed, moderate Diabetes mellitus Elevated glucose Essential hypertension Fibromyalgia GERD (gastroesophageal reflux disease) History of kidney stones Hypersomnolence Hypothyroidism Migraines Mixed hyperlipidemia (normal spontaneous vaginal delivery) Vitamin D deficiency Surgical History Surgical History History of tonsillectomy S/P D&C (status post dilation and curettage) 1981 for miscarriage Family History Family History Grandparent Hypertension Family history of malignant neoplasm Family history of coronary artery disease Father Esophageal cancer Mother Lung cancer Social History Social History Smoking status: Never smoker Second hand tobacco smoke exposure: No Alcohol intake: never Substance use: never Substance use type: does not use Lack of Transportation: No Lack of Food: Never True Current Housing: I Have Housing Concerned About Future Housing: No Difficulty Paying Gas/Electric Bills: YES Difficulty Paying for Meds: No Currently Unemployed: YES Education: High School Diploma/GED Difficulty w/ Childcare or Family Care: No Living arrangements: with family Additional living arrangements comments: Occupation/Education: unemployed Gender identity (if verbalized by the patient): Female Sexual Orientation (if Verbalized by the Patient): St
[2024-06-21 10:45] LABS: Glucose Point of Care 108 mg/dl (65-105)
[2024-06-21] MEDS: ceFAZolin 2 GM/D5W 50 ML 2 GM/50 ML BAG IVPB (12:06)
--- NOTE | 2024-06-21 12:25 | P.OP_ITS ---
Procedure Note - Detailed Date of Procedure 06/21/24 Pre-op Diagnosis Right renal stones Post-op Diagnosis Same Procedure Performed Cystoscopy, right stent removal, right ESWL Surgeon Maverick Bravo MD Anesthesia General Description of Procedure The patient was brought to the operative suite where she was placed in the frog- legged position on the Dornier lithotripter table. Flexible cystoscopy was undertaken with a 16F flexible cystoscopy. Her urethra and bladder neck were endoscopically normal. The bladder mucosa was normal and there was a single, orthotopic ureteral orifice bilaterally. The tip of the indwelling stent was grasped and it was removed with ease. The patient was then repositioned in the supine position and the focal point of the lithotriptor was placed at a 6-7mm left mid-ureteral calculus. A total of 2500 shocks were delivered at a power setting of 4. There appeared to be good fragmentation of the stone. The patient tolerated the procedure well and was taken to the recovery room in good condition.
[2024-06-21 13:25] LABS: Glucose Point of Care 91 mg/dl (65-105)
== END 2024-06-21 14:55 | disposition home or self-care (01) ==
PROVIDERS: PCP Family Medicine; Visit Provider Urology
PROC: (CPT 50590; principal; 2024-06-21 11:30)
PROC: (CPT 52310; 2024-06-21 11:30)
DX: N20.0 Calculus of kidney (principal); E11.9 Type 2 diabetes mellitus without complications; I10 Essential (primary) hypertension; E03.9 Hypothyroidism, unspecified; E78.5 Hyperlipidemia, unspecified; E55.9 Vitamin D deficiency, unspecified
CPT/HCPCS: 50590; 52310; 74018; 82948; J0690; J1100; J2405; J2704; J3010; J7030; J7120

== ENCOUNTER 2024-07-01 14:55 | Outpatient (CLI) | payer MEDICARE, SELFPAY ==
--- NOTE | ~2024-07-01 | XR_ITS ---
XR abdomen/kub 1V Ordering provider: Maverick Bravo MD History: . N20.0 - Calculus of kidney. f/u. litho x1wk ago . Comparison: June 21, 2024 FINDINGS: BOWEL: Nonobstructive bowel gas pattern. ORGANOMEGALY: None. SIGNIFICANT PATHOLOGIC CALCIFICATIONS: Tiny calcifications in the right renal area may be a stone. Fe bhanu material is overlapping the right kidney lower pole. OTHER: No free air is seen under the diaphragm. IMPRESSION: NO ACUTE ABDOMINAL FINDINGS. Tiny calcification the right renal area. Follow-up advised Reviewed, dictated and finalized at location A.
== END 2024-07-01 14:56 | disposition home or self-care (01) ==
LOC: ANHIMG 14:58
PROVIDERS: PCP Family Medicine; Visit Provider Urology
DX: N20.0 Calculus of kidney (principal)
CPT/HCPCS: 74018

== ENCOUNTER 2024-09-19 10:34 | Outpatient (CLI) | payer MEDICARE, SELFPAY ==
--- NOTE | ~2024-09-19 | MM_ITS ---
EXAMINATION: MM screening paul BI w christiano HISTORY: Screening TECHNIQUE: Craniocaudal and mediolateral oblique 3-D tomosynthesis images were obtained and synthetic 2-D images were generated. CAD analysis was submitted and interpreted. COMPARISON: Comparison to multiple prior studies sequentially, with oldest reviewed study dated 01/18. BREAST PARENCHYMAL COMPOSITION: Not dense: There are scattered areas of fibroglandular density. FINDINGS: There is no evidence of suspicious mass, calcification, or architectural distortion to sugg est malignancy in either breast. There has been no suspicious interval change. IMPRESSION: 1. No mammographic evidence of malignancy. 2. Recommend routine screening mammography in one year. BI-RADS Category 1: Negative Reviewed, dictated and finalized at location B. VALUE ASSOCIATE
== END 2024-09-19 10:35 | disposition home or self-care (01) ==
LOC: MICIMG 10:34
PROVIDERS: PCP Family Medicine; Visit Provider Nurse Practitioner
DX: Z12.31 Encounter for screening mammogram for malignant neoplasm of breast (principal)
CPT/HCPCS: 77063; 77067

== ENCOUNTER 2025-01-06 16:24 | Outpatient (CLI) | payer MEDICARE, SELFPAY ==
--- NOTE | ~2025-01-06 | XR_ITS ---
Supine and upright views of the abdomen Clinical history: Right renal stone COMPARISON: 07/01/2024 Findings: Bowel gas pattern is nonspecific. Moderate stool. No evidence for obstruction or free air. No abnormal mass lesion or calcification is seen. Osseous structures are intact. Impression: Constipation. No definite renal stone seen. Reviewed, dictated and finalized at [facility]. Impression: Constipation. No definite renal stone seen.
--- OUTSIDE RECORDS SUMMARY | 2025-01-06 18:00 | XMS_ITS | Clinical Summary ---
Author Organization [facility] [employer] Address [address] [place] [address] Care Team Providers Care Casino Worker Name Role Phone Sara Figueredo MD Primary Care Provider [phone] Source Comments [facility] [employer],non-owned Affiliates and Associated Physician Practices is amultiple site organization consisting of ambulatory clinics and hospital sitesin [place], [place]. This disclosure is being madepursuant to the Care Everywhere program and may not contain all information available regarding this patient. Last updated 18.[facility] [employer] Allergies No known active allergies Medications * Be aware that medications may not be up to date on this document. Alwaysverify current medications with the patient. Medication Sig Dispensed Refills Start Date End Date Status levothyroxine (LEVOTHROID) 75 MCG tablet Take 75 mcg by mouth daily before breakfast. Active esomeprazole (NEXIUM) 20 MG capsule Take 20 mg by mouth daily before breakfast. Active metoprolol tartrate IR (LOPRESSOR) 100 MG tablet Take 100 mg by mouth 2 times daily. Active lisinopril (PRINIVIL; ZESTRIL) 10 MG tablet Take 10 mg by mouth once daily. Active sertraline (ZOLOFT) 100 MG tablet Take 100 mg by mouth once daily. Active medroxyPROGESTERone (PROVERA) 5 MG tablet Take 5 mg by mouth once daily. Active estradiol (ESTRACE) 2 MG tablet Take 2,000 mg by mouth once daily. Active vitamin D, ergocalciferol, (DRISDOL) 69679 UNITS capsule Take 50,000 Units by mouth every 30 days. Sat and wed Active naproxen (NAPROSYN) 500 MG tablet Take 500 mg by mouth 2 times daily. Active zolpidem (AMBIEN) 10 MG tablet Take 10 mg by mouth nightly as needed for Insomnia. Active oxyCODONE-acetaminophe n (PERCOCET) 5-325 MG tablet Take 1 Tab by mouth every 6 hours as needed for Pain. 20 Tab 0 07/22/2014 Active Social History Tobacco Use Types Packs/Day Years Used Date Smoking Tobacco: Never Smokeless Tobacco: Never Alcohol Use Standard Drinks/Week Comments No 0 (1 standard drink = 0.6 oz pur e alcohol) Sex and Gender Information Value Date Recorded Sex Assigned at Not on file Gender Identity Not on file Sexual Orientation Not on file Last Filed Vital Signs Vital Sign Reading Time Taken Comments Blood Pressure 136/80 09/03/2014 11:37 AM KILN MECHANIC Pulse 55 07/22/2014 12:55 PM CDT Temperature 36.4 C (97.5 F) 07/22/2014 11:39 AM CDT Respiratory Rate 18 07/22/2014 12:55 PM CDT Oxygen Saturation 98% 07/22/2014 12:55 PM CDT Inhaled Oxygen Concentration - - Weight 83.9 kg (185 lb) 09/03/2014 11:37 AM KILN MECHANIC Height 165.1 cm (5' 5 ) 09/03/2014 11:37 AM KILN MECHANIC Body Mass Index 30.79 09/03/2014 11:37 AM KILN MECHANIC Plan of Treatment Health Maintenance Due Date Last Done Comments BONE DENSITY TESTING 1955 COLOGUARD (AGES 45-75) - COL ON CA SCREENING 1956 COLON MONITORING 1956 COLONOSCOPY - COLON CA SCREENING 1956 CT COLONOGRAPHY - COLON CA SCREENING 1956 Colorectal Cancer Screening 1956 FIT - COLON CA SCREENING 1956 FLEX SIG - COLON CA SCREENING 1956 LIPID TESTING 1956 MAMMOGRAM 1956 MEDICARE AWV 12 MONTHS 1956 HEPATITIS C SCREENING 10/23/1974 DTAP/TDAP/TD VACCINES (1 - Tdap) 1975 PNEUMOCOCCAL VACCINE 50+ (1 of 1 - PCV) 2006 ZOSTER VACCINE (1 of 2) 2006 COVID-19 VACCINE (1 - 2023-2 5 season) 2024 DEPRESSION SCREENING 10/02/2024 INFLUENZA VACCINE (Season Ended) 2025 Respiratory Syncytial Virus (RSV) Vaccine Pt: or over 60 yrs (1 - 1-dose 75+ series) 2031 HEPATITIS B VACCINE Aged Out No longe r eligible based on patient's age to complete this topic HIB VACCINE Aged Out No longer eligi ble based on patient's age to complete this topic HPV VACCINE Aged Out No longer eligi ble based on patient's age to complete this topic MENINGOCOCCAL (Group B) VACC INE SHARED DECISION-MAKING Aged Out No longer eligibl e based on patient's age to complete this topic MENINGOCOCCAL GROUPS A/C/Y/W VACCINE Aged Out No longer eligible b ased on patient's age to complete this topic Medical Devices Implanted Type Area Buffer Nickel Device Identifier Shelf Expiration Date Model / Serial / Lot Slng Lynx Mid-Ureth Implanted:Qty: 1 on 07/22/2014 by Romana Eduardo MD at [facility] N/A: Vagina [employer] 01/30/2017 [id number] / / Care Teams Casino Worker Relationship Specialty Start Date End Date Sara Figueredo MD [address] [place] [address] PCP - General Family Medicine 07/18/14
--- OUTSIDE RECORDS SUMMARY | 2025-01-06 18:00 | XMS_ITS | Clinical Summary ---
Author Organization [facility] [place] [address] Address [address] [place] [address] Care Team Providers Care Locomotive Observer Name Role Phone Sara Figueredo MD Primary Care Provider [phone] Allergies No known active allergies Medications albuterol HFA (PROVENTIL HFA,VENTOLIN HFA,PROAIR HFA) 90 mcg/actuation inhaler INHALE 1 PUFF BY MOUTH EVERY 4 HOURS NEEDED FOR SHORTNESS OF BREATH AND WHEEZING 2 Active amLODIPine (NORVASC) 5 mg tablet Take 5 mg by mouth daily [address] (CYMBALTA) 30 mg capsule Take by mouth daily 2 Active ergocalciferol (VITAMIN D) 50,000 unit capsule Take 50,000 Units by mouth every 30 (thirty) days Active esomeprazole DR (NexIUM) 20 mg capsule Take 20 mg by mouth daily before breakfast Active levothyroxine (SYNTHROID) 75 mcg tablet Take 75 mcg by mouth daily 2 Active lithium ER (LITHOBID) 300 mg CR tablet Take 300 mg by mouth daily 2 Active metoprolol (LOPRESSOR) 100 mg tablet Take 100 mg by mouth every 12 (twelve) hours 2 Active naproxen (NAPROSYN) 500 mg tablet Take 500 mg by mouth 2 (two) times a day as needed for pain 2 Active cyanocobalamin (Vitamin B-12) 1,000 mcg/mL injection Active Active Problems Problem Noted Date Diagnosed Date Abnormal nuclear stress test 06/22/2022 Surgical History Surgery Date Site/Laterality Comments HYSTEROSCOPY 08/29/2022 CARDIAC CATHETERIZATION Medical History Medical History Date Comments Abnormal stress test Diabetes mellitus (HCC) Family History Medical History Relation Name Comments Heart disease Mother Relation Name Status Comments Father Mother Social History Tobacco Use Types Packs/Day Years Used Date Smoking Tobacco: Never Smokeless Tobacco: Never Tobacco Cessation:Counseling Given: Not Answered AUDIT-C Answer Date Recorded Frequency of Alcohol Consumption Not on file 06/22/2022 Q2: How many drinks containi ng alcohol do you have on a typical day when you are drinking? Patient does not drink Frequency of Binge Drinking Not on file 06/03 Personal Safety Answer Date Recorded Getting School Help Needed Not on file 11/21 Comments Unknown Sex and Gender Information Value Date Recorded Sex Assigned at Not on file Legal Sex Female 9:24 AM DIRECT MARKETING INTERN Gender Identity Not on file Sexual Orientation Not on file Obstetrics History Last Filed Vital Signs Vital Sign Reading Time Taken Comments Blood Pressure 120/78 09/07/2022 9:51 AM DIRECT MARKETING INTERN Pulse 71 09/07/2022 9:51 AM DIRECT MARKETING INTERN Temperature - - Respiratory Rate - - Oxygen Saturation 97% 09/07/2022 9:51 AM DIRECT MARKETING INTERN Inhaled Oxygen Concentration - - Weight 87.5 kg (192 lb 12.8 oz) 09/07/2022 9:51 AM DIRECT MARKETING INTERN Height 165.1 cm (5' 5 ) 09/07/2022 9:51 AM DIRECT MARKETING INTERN Body Mass Index 32.08 09/07/2022 9:51 AM DIRECT MARKETING INTERN Plan of Treatment Health Maintenance Due Date Last Done Comments Breast Cancer Screening-Mammogram 1956 Colon Cancer Screening-Colonoscopy 1956 Depression Screening 1956 Fall Risk Assessment 1956 Hepatitis C Screening 1956 Osteoporosis Screening-Bone Density Scan 1956 DTaP/Tdap/Td Vaccine (1 - Tdap) 1967 Hepatitis B Screening 1974 Pneumococcal vaccine 65+ (1 of 1 - PCV) 2006 Zoster Vaccine (1 of 2) 2006 Well Visit 65+ 2021 Covid-19 Vaccine (3 - season) 2024, 01/04/2021 Influenza Vaccine (Season Ended) 2025 08/11/20 22, 07/03/2020 Insurance [facility] MEDICARE Care Teams Locomotive Observer Relationship Specialty Start Date End Date Sara Figueredo MD PCP - General Family Medicine 05/19/22
--- OUTSIDE RECORDS SUMMARY | 2025-01-06 18:00 | XMS_ITS | Referral Summary ---
Author Organization [facility] [place] [address] Address [address] [place] [address] Care Team Providers Care Senior Speech Pathologist Name Role Phone Sara Figueredo MD Primary Care Provider [phone] Allergies No known active allergies Medications albuterol [...] Diagnosed Date Abnormal nuclear stress test 06/22/2022 Social History Tobacco Use Types Packs/Day Years [...] on file Legal Sex Female 9:24 AM GRADUATE NURSE Gender Identity Not on file Sexual Orientation Not on file Last Filed Vital Signs Vital Sign Reading Time Taken Comments Blood Pressure 120/78 09/07/2022 9:51 AM GRADUATE NURSE Pulse 71 09/07/2022 9:51 AM GRADUATE NURSE Temperature - - Respiratory Rate - - Oxygen Saturation 97% 09/07/2022 9:51 AM GRADUATE NURSE Inhaled Oxygen Concentration - - Weight 87.5 kg (192 lb 12.8 oz) 09/07/2022 9:51 AM GRADUATE NURSE Height 165.1 cm (5' 5 ) 09/07/2022 9:51 AM GRADUATE NURSE Body Mass Index 32.08 09/07/2022 9:51 AM GRADUATE NURSE Plan of Treatment Not on file Insurance [facility] MEDIC[employer] Care Teams Senior Speech Pathologist Relationship Specialty Start Date End Date Sara Figueredo MD PCP - General Family Medicine 05/19/22
--- OUTSIDE RECORDS SUMMARY | 2025-01-06 18:00 | XMS_ITS | Clinical Summary ---
Author Organization [facility] Address Formerly [facility] [place] [address] Care Team Providers Care Abstractor Name Role Phone Unavailable Primary Care Provider Unavailabl e Social History Tobacco Use Types Packs/Day Years Used Date Smoking Tobacco: Never Assessed Comments Unknown Sex and Gender Information Value Date Recorded Sex Assigned at Not on file Legal Sex Female 7:02 PM CDT Gender Identity Not on file Sexual Orientation Not on file Plan of Treatment Health Maintenance Due Date Last Done Comments Colorectal Cancer Screening Colonoscopy (10 Years) 1956 Hepatitis C 1974 DTaP, Tdap and Td Vaccines ( 1 - Tdap) 1975 Mammogram Screening 1996 Zoster Vaccines (1 of 2) 2006 Dexa Scan (General) 2021 Pneumococcal Vaccine: 65+ Ye ars (1 of 1 - PCV) 2021 COVID-19 Vaccine ( - 2023-2 5 season) 2024 RSV Immunization or 60+ Years (1 - 1-dose 75+ series) 2031 Meningococcal B Vaccine Aged Out No l onger eligible based on patient's age to complete this topic Meningococcal Vaccine Aged Out No brie sarwat eligible based on patient's age to complete this topic RSV Immunizations Under 20 Months Aged Out No longer eligible based on patient's age to complete this topic
--- OUTSIDE RECORDS SUMMARY | 2025-01-06 18:00 | XMS_ITS | Clinical Summary ---
Author Organization [facility] Care Team Providers Care Dance Coach Name Role Phone Unavailable Primary Care Provider Unavailabl e Social History Tobacco Use Types Packs/Day Years Used Date Smoking Tobacco: Never Assessed Comments Unknown Sex and Gender Information Value Date Recorded Sex Assigned at Not on file Legal Sex Female 5:42 PM CDT Gender Identity Not on file Sexual Orientation Not on file Plan of Treatment Health Maintenance Due Date Last Done Comments DEXA Bone Density 1955 Hepatitis C Virus (HCV) Screening 1956 TdaP Immunization 1956 Colonoscopy 2001 Colorectal Cancer Screening 2001 Cologuard 2006 Immunochemical Fecal Occult Blood 2006 Mammogram 2006 Pneumococcal Immunization (5 0+ years) (1 of 1 - PCV) 2006 Zoster Immunization (1 of 2) 2006 Influenza Immunization (#1) 2024 07/03/2020 SARS-COV-2 Immunization (3 - season) 2024 01/25/2021, 01/04/2021 Respiratory Syncytial Virus (RSV) Immunization (Adult) (1 - 1-dose 75+ series) 2031 Hepatitis B Immunization Aged Out No longer eligible based on patient's age to complete this topic Meningococcal Immunization (ACWY) Aged Out No longer eligible b ased on patient's age to complete this topic Rotavirus Immunization Aged Out No lo nger eligible based on patient's age to complete this topic
== END 2025-01-06 16:25 | disposition home or self-care (01) ==
PROVIDERS: PCP Family Medicine; Visit Provider Urology
DX: K59.00 Constipation, unspecified (principal); N20.0 Calculus of kidney
CPT/HCPCS: 74018

== ENCOUNTER 2025-05-05 10:35 | Outpatient (CLI) | payer MEDICARE, SELFPAY ==
--- NOTE | ~2025-05-05 | XR_ITS ---
XR abdomen/kub 1V 05/05/2025 10:47 INDICATION: Flank pain TECHNIQUE: KUB COMPARISON: 01/06/2025 FINDINGS: Bowel gas pattern is normal. There is no evidence of free air, mass, organomegaly, ascites or obstruction. No abnormal calculi are seen. The bones appear intact. Moderate colonic fecal load ing. IMPRESSION: 1: No acute abdominal abnormality identified. Reviewed, dictated and finalized at location A.
--- OUTSIDE RECORDS SUMMARY | 2025-05-05 11:06 | XMS_ITS | Clinical Summary ---
Author Organization [facility] Address [address] [place] [address] Care Team Providers Care Chip Machine Operator Name Role Phone Sara Figueredo MD Primary Care Provider [phone] Source Comments [facility],non-owned Affiliates and Associated Physician Practices is amultiple site organization consisting of ambulatory clinics and hospital sitesin [place], [place], [place] and [place]. This disclosure is being madepursuant to the Care Everywhere program and may not contain all information available regarding this patient. Last updated 18.[facility] Allergies No known active allergies Medications * Be aware that medications may not be up to date on this document. Alwaysverify current medications with the patient. levothyroxine (LEVOTHROID) 75 MCG tablet Take 75 [...] 100 mg by mouth once daily. Active medroxyPROGESTE Mervin (PROVERA) 5 MG tablet Take 5 mg by mouth once daily. Active estradiol (ESTRACE) 2 MG tablet Take 2,000 mg by mouth once daily. Active vitamin D, ergocalciferol, (DRISDOL) 47632 UNITS capsule Take 50,000 Units by mouth every 30 days. Sat and wed Active naproxen (NAPROSYN) 500 MG tablet Take 500 mg by mouth 2 times daily. Active zolpidem (AMBIEN) 10 MG tablet Take 10 mg by mouth nightly as needed for Insomnia. Active oxyCODONE-aceta minophen (PERCOCET) 5-325 MG tablet Take 1 Tab by mouth every 6 hours as needed for Pain. 20 Tab 0 07/22/2014 Active Social History Tobacco Use Types Packs/Day Years Used Date Smoking Tobacco: Never Smokeless Tobacco: Never Alcohol Use Standard Drinks/Week Comments No 0 (1 standard drink = 0.6 oz pur e alcohol) Comments No Sex and Gender Information Value Date Recorded Sex Assigned at Not on file Legal Sex Female 11:11 AM CDT Gender Identity Not on file Sexual Orientation Not on file Last Filed Vital Signs Vital Sign Reading Time Taken Comments Blood Pressure 136/80 09/03/2014 11:37 AM ENGINEERING INSTRUCTOR Pulse 55 07/22/2014 12:55 PM CDT Temperature 36.4 C (97.5 F) 07/22/2014 11:39 AM CDT Respiratory Rate 18 07/22/2014 12:55 PM CDT Oxygen Saturation 98% 07/22/2014 12:55 PM CDT Inhaled Oxygen Concentration - - Weight 83.9 kg (185 lb) 09/03/2014 11:37 AM ENGINEERING INSTRUCTOR Height 165.1 cm (5' 5) 09/03/2014 11:37 AM ENGINEERING INSTRUCTOR Body Mass Index 30.79 09/03/2014 11:37 AM ENGINEERING INSTRUCTOR Plan of Treatment Health Maintenance Due Date Last Done Comments BONE DENSITY TESTING 1955 COLOGUARD (AGES 45-75) - COL ON CA SCREENING 1956 COLON MONITORING 1956 COLONOSCOPY - COLON CA SCREENING 1956 CT COLONOGRAPHY - COLON CA SCREENING 1956 Colorectal Cancer Screening 1956 FIT - COLON CA SCREENING 1956 FLEX SIG - COLON CA SCREENING 1956 LIPID TESTING 1956 MAMMOGRAM 1956 HEPATITIS C SCREENING 10/23/1974 DTAP/TDAP/TD VACCINES (1 - Tdap) 1975 PNEUMOCOCCAL VACCINE 50+ (1 of 1 - PCV) 2006 ZOSTER VACCINE (1 of 2) 2006 COVID-19 VACCINE (1 - 2023-2 5 season) 2024 DEPRESSION SCREENING 10/02/2024 INFLUENZA VACCINE (#1) 2025 Respiratory Syncytial Virus (RSV) Vaccine Pt: [...] this topic Medical Devices Implanted Type [employer] Truck Driver Device Identifier Shelf Expiration Date Model / Serial / Lot Slng Lynx Mid-Ureth Implanted:Qty: 1 on 07/22/2014 by Romana Eduardo MD at [facility] N/A: [facility] [employer] [facility] 01/30/2017 [id number] / / Insurance [facility] MEDICARE Care Teams Chip Machine Operator Relationship Specialty Start Date End Date Sara Figueredo MD [address] [place] [address] PCP - General Family Medicine 07/18/14
--- OUTSIDE RECORDS SUMMARY | 2025-05-05 11:06 | XMS_ITS | Clinical Summary ---
Author Organization [facility] Care Team Providers Care Cosmetic Consultant Name Role Phone Unavailable Primary Care Provider Unavailabl e Social History Tobacco Use Types Packs/Day Years Used Date Smoking Tobacco: Never Assessed Comments Unknown Sex and Gender Information Value Date Recorded Sex Assigned at Not on file Legal Sex Female 5:42 PM CDT Gender Identity Not on file Sexual Orientation Not on file Plan of Treatment Health Maintenance Due Date Last Done Comments Hepatitis C Virus (HCV) Screening 1955 TdaP Immunization 1956 Cologuard 2001 Colonoscopy 2001 Colorectal Cancer Screening 2001 Immunochemical Fecal Occult Blood 2001 Pneumococcal Immunization (5 0+ years) (1 of 1 - PCV) 2006 Zoster Immunization (1 of 2) 2006 SARS-COV-2 Immunization (3 - season) 2024 01/25/2021, 01/04/2021 Influenza Immunization (#1) 2025 07/03/2020 Respiratory Syncytial Virus (RSV) Immunization (Adult) (1 - 1-dose 75+ series) 2031 Hepatitis B Immunization Aged Out No longer eligible based on patient's age to complete this topic Human Papillomavirus (HPV) Immunization Aged Out No longer eligible b ased on patient's age to complete this topic Meningococcal Immunization (ACWY) Aged Out No longer eligible b ased on patient's age to complete this topic Rotavirus Immunization Aged Out No lo nger eligible based on patient's age to complete this topic
--- OUTSIDE RECORDS SUMMARY | 2025-05-05 11:06 | XMS_ITS | Referral Summary ---
Author Organization [facility] [address] Address [address] [place] [address] Care Team Providers Care Secondary School Registrar Name Role Phone Sara Figueredo MD Primary Care Provider [phone] Allergies No known active allergies Medications albuterol [...] on file Legal Sex Female 9:24 AM TOLL TRANSMISSION WORKER Gender Identity Not on file Sexual Orientation Not on file Last Filed Vital Signs Vital Sign Reading Time Taken Comments Blood Pressure 120/78 09/07/2022 9:51 AM TOLL TRANSMISSION WORKER Pulse 71 09/07/2022 9:51 AM TOLL TRANSMISSION WORKER Temperature - - Respiratory Rate - - Oxygen Saturation 97% 09/07/2022 9:51 AM TOLL TRANSMISSION WORKER Inhaled Oxygen Concentration - - Weight 87.5 kg (192 lb 12.8 oz) 09/07/2022 9:51 AM TOLL TRANSMISSION WORKER Height 165.1 cm (5' 5) 09/07/2022 9:51 AM TOLL TRANSMISSION WORKER Body Mass Index 32.08 09/07/2022 9:51 AM TOLL TRANSMISSION WORKER Plan of Treatment Not on file Insurance [facility] MEDICARE Care Teams Secondary School Registrar Relationship Specialty Start Date End Date Sara Figueredo MD PCP - General Family Medicine 05/19/22
--- OUTSIDE RECORDS SUMMARY | 2025-05-05 11:06 | XMS_ITS | Clinical Summary ---
Author Organization [facility] Address [facility] [place] [address] Care Team Providers Care Tailercpa Name Role Phone Unavailable Primary Care Provider [...] 1 - Tdap) 1975 Mammogram Screening 1996 Pneumococcal Vaccine: 50+ Ye ars (1 of 1 - PCV) 2006 Zoster Vaccines (1 of 2) 2006 Dexa Scan (General) 2021 COVID-19 Vaccine ( - 2023-2 5 [...]
--- OUTSIDE RECORDS SUMMARY | 2025-05-05 11:06 | XMS_ITS | Clinical Summary ---
Author Organization [facility] [address] Address [address] [place] [address] Care Team Providers Care Contract Coordinator Name Role Phone Sara Figueredo MD Primary Care Provider [phone] Allergies No known active allergies Medications albuterol [...] on file Legal Sex Female 9:24 AM ASSISTANT PRODUCE MANAGER Gender Identity Not on file Sexual Orientation Not on file Obstetrics History Last Filed Vital Signs Vital Sign Reading Time Taken Comments Blood Pressure 120/78 09/07/2022 9:51 AM ASSISTANT PRODUCE MANAGER Pulse 71 09/07/2022 9:51 AM ASSISTANT PRODUCE MANAGER Temperature - - Respiratory Rate - - Oxygen Saturation 97% 09/07/2022 9:51 AM ASSISTANT PRODUCE MANAGER Inhaled Oxygen Concentration - - Weight 87.5 kg (192 lb 12.8 oz) 09/07/2022 9:51 AM ASSISTANT PRODUCE MANAGER Height 165.1 cm (5' 5) 09/07/2022 9:51 AM ASSISTANT PRODUCE MANAGER Body Mass Index 32.08 09/07/2022 9:51 AM ASSISTANT PRODUCE MANAGER Plan of Treatment Health Maintenance Due Date [...] (3 - season) 2024, 01/04/2021 Influenza Vaccine (#1) 2025 08/11/2022, 2019 Insurance [facility] Care Teams Contract Coordinator Relationship Specialty Start Date End Date Sara Figueredo MD PCP - General Family Medicine 05/19/22
== END 2025-05-05 10:36 | disposition home or self-care (01) ==
PROVIDERS: PCP Family Medicine; Visit Provider Urology
DX: Z87.442 Personal history of urinary calculi (principal)
CPT/HCPCS: 74018

== ENCOUNTER 2025-07-01 15:19 | Outpatient (CLI) | payer MEDICARE, SELFPAY ==
--- NOTE | ~2025-07-01 | US_ITS ---
EXAMINATION: US transvaginal, 07/01/2025 15:22 CDT HISTORY: Postmenopausal bleeding Comparison: None Technique: Hyatt-scale and color Doppler images were obtained. Findings: Uterus: Uterus anteverted 4.7 x 2.6 x 3.3 cm. . Endometrium 2 mm. Right Ovary:Right ovary not identified. Left Ovary: Left ovary not identified. Free Fluid: None Impression: No etiology to explain the patient's symptoms. Reviewed, dictated and finalized at location P. Impression: No etiology to explain the patient's symptoms.
== END 2025-07-01 15:20 | disposition home or self-care (01) ==
LOC: MICIMG 15:20
PROVIDERS: PCP Family Medicine
DX: N95.0 Postmenopausal bleeding (principal)
CPT/HCPCS: 76830

== ENCOUNTER 2025-09-10 15:40 | Outpatient (CLI) | payer MEDICARE, SELFPAY ==
--- NOTE | ~2025-09-10 | US_ITS ---
EXAMINATION: US transvaginal, 09/10/2025 15:41 PREPARED FOODS SUPERVISOR HISTORY: Post menopausal bleeding Comparison: None Technique: Hyatt-scale and color Doppler images were obtained. Findings: Uterus: Uterus anteverted 5.8 x 3.4 x 3.8 cm endometrium 2.4 mm. . Right Ovary:Right ovary not identified. Left Ovary: Left ovary not identified. Free Fluid: None Impression: No etiology to explain the patient's symptoms Reviewed, dictated and finalized at location P. ARED FOODS SUPERVISOR Impression: No etiology to explain the patient's symptoms
== END 2025-09-10 15:41 | disposition home or self-care (01) ==
LOC: MICIMG 15:40
PROVIDERS: PCP Student in an Organized Health Care Education/Training Program; Visit Provider Nurse Practitioner
DX: N95.0 Postmenopausal bleeding (principal)
CPT/HCPCS: 76830

== ENCOUNTER 2025-09-22 09:26 | Outpatient (CLI) | payer MEDICARE, SELFPAY ==
--- NOTE | ~2025-09-22 | MM_ITS ---
EXAMINATION: MM screening paul BI w christiano HISTORY: Screening. TECHNIQUE: Craniocaudal and mediolateral oblique 3-D tomosynthesis images were obtained and synthetic 2-D images were generated. CAD analysis was submitted and interpreted. COMPARISON: 2023, 2022, and 2021. BREAST PARENCHYMAL COMPOSITION: Not Dense: There are scattered areas of fibroglandular tissue. FINDINGS: No suspicious masses are seen. There are no suspicious calcifications. No unexplained architectural distortion is seen. There are no skin or nipple abnormalities identified. There is no adenopathy seen on the images submitted. IMPRESSION: No mammographic evidence to suggest malignancy is seen. The patient may return to screening mammography as per ACR guidelines. BI-RADS 1 - Negative. Reviewed, dictated and finalized at location A. E PRINCIPAL
--- OUTSIDE RECORDS SUMMARY | 2025-09-22 10:34 | XMS_ITS | Clinical Summary ---
Author Organization [facility] [address] Address [address] [place] [address] Care Team Providers Care Litigation Attorney Associate Name Role Phone Sara Figueredo MD Primary Care Provider [phone] Allergies No known active allergies Medications albuterol [...] Date Comments Abnormal stress test Diabetes mellitus Family History Medical History Relation Name Comments [...] on file Legal Sex Female 9:24 AM ENVELOPE FOLDER Gender Identity Not on file Sexual Orientation Not on file Last Filed Vital Signs Vital Sign Reading Time Taken Comments Blood Pressure 120/78 09/07/2022 9:51 AM ENVELOPE FOLDER Pulse 71 09/07/2022 9:51 AM ENVELOPE FOLDER Temperature - - Respiratory Rate - - Oxygen Saturation 97% 09/07/2022 9:51 AM ENVELOPE FOLDER Inhaled Oxygen Concentration - - Weight 87.5 kg (192 lb 12.8 oz) 09/07/2022 9:51 AM ENVELOPE FOLDER Height 165.1 cm (5' 5) 09/07/2022 9:51 AM ENVELOPE FOLDER Body Mass Index 32.08 09/07/2022 9:51 AM ENVELOPE FOLDER Plan of Treatment Not on file Insurance [facility] MEDICARE Care Teams Litigation Attorney Associate Relationship Specialty Start Date End Date Sara Figueredo MD PCP - General Family Medicine 05/19/22
--- OUTSIDE RECORDS SUMMARY | 2025-09-22 10:34 | XMS_ITS | Clinical Summary ---
Author Organization [facility] [employer] Address [address] [place] [address] Care Team Providers Care Ambulance Paramedic Name Role Phone Sara Figueredo MD Primary Care Provider [phone] [facility] [employer],non-owned Affiliates and Associated Physician Practices is amultiple site organization consisting of ambulatory clinics and hospital sitesin [place], [place], [place] and [place]. This disclosure is being madepursuant to the Care Everywhere program and may not contain all information available regarding this patient. Last updated 18.[facility] [employer] Allergies No known active allergies Medications * [...] once daily. Active vitamin D, ergocalciferol, (DRISDOL) 54171 UNITS capsule Take 50,000 Units by mouth [...] Comments Blood Pressure 136/80 09/03/2014 11:37 AM BULKING MACHINE OPERATOR Pulse 55 07/22/2014 12:55 PM CDT Temperature 36.4 C (97.5 F) 07/22/2014 11:39 AM CDT Respiratory Rate 18 07/22/2014 12:55 PM CDT Oxygen Saturation 98% 07/22/2014 12:55 PM CDT Inhaled Oxygen Concentration - - Weight 83.9 kg (185 lb) 09/03/2014 11:37 AM BULKING MACHINE OPERATOR Height 165.1 cm (5' 5) 09/03/2014 11:37 AM BULKING MACHINE OPERATOR Body Mass Index 30.79 09/03/2014 11:37 AM BULKING MACHINE OPERATOR Plan of Treatment Health Maintenance Due Date [...] 2006 ZOSTER VACCINE (1 of 2) 2006 DEPRESSION SCREENING 10/02/2024 COVID-19 VACCINE (1 - 2024-2 6 season) 2025 INFLUENZA VACCINE (#1) 2025 Respiratory Syncytial Virus [...] this topic Medical Devices Implanted Type Area Hand Stitcher Device Identifier Shelf Expiration Date Model / Serial / Lot Slng Lynx Mid-Ureth Implanted:Qty: 1 on 07/22/2014 by Romana Eduardo MD at [facility] N/A: [facility] [employer] [place] 01/30/2017 [id number] / / Insurance [facility] MEDICARE Care Teams Ambulance Paramedic Relationship Specialty Start Date End Date Sara Figueredo MD [address] [place] [address] PCP - General Family Medicine 07/18/14
--- OUTSIDE RECORDS SUMMARY | 2025-09-22 10:34 | XMS_ITS | Clinical Summary ---
Author Organization [facility] Care Team Providers Care Integration Solution Architect Name Role Phone Unavailable Primary Care Provider [...] (1 of 2) 2006 Influenza Immunization (#1) 2025 07/03/2020 SARS-COV-2 Immunization (3 - season) 2025 01/25/2021, 01/04/2021 Respiratory Syncytial Virus (RSV) Immunization [...]
== END 2025-09-22 09:27 | disposition home or self-care (01) ==
LOC: ANHFOHIMG 09:31
PROVIDERS: PCP Student in an Organized Health Care Education/Training Program; Visit Provider Obstetrics & Gynecology Gynecology
DX: Z12.31 Encounter for screening mammogram for malignant neoplasm of breast (principal)
CPT/HCPCS: 77063; 77067